=== PATIENT | male | born 1960 | race Caucasian/White ===

== ENCOUNTER 2021-01-14 07:19 | Outpatient (REF) | payer OTHER, SELFPAY ==
[2021-01-14 07:42] LABS: MANUAL DIFF FLAG NO
[2021-01-14 07:47] LABS: Basophils Absolute Auto 0.1 X10*3/uL (0.0-0.2); Basophils Percent Auto 1.3 % (0-2); Eosinophils Absolute Auto 0.1 X10*3/uL (0.0-0.4); Eosinophils Percent Auto 1.1 % (0-4); Hematocrit 46.4 % (42-52); Imm Gran Abs Auto 0.03 X10*3/uL (0.00-0.03); Imm Gran Pct Auto 0.3 % (0.0-0.4); Lymphocytes Absolute Auto 3.1 X10*3/uL (1.2-4.9); Lymphocytes Percent Auto 31.6 % (20-40); Mean Corpuscular HGB Conc 32.3 g/dl (31.0-36.0); Mean Corpuscular Hemoglobin 26.5 pg (27.0-33.0); Mean Platelet Volume 10.1 fL (9.4-12.4); Monocytes Absolute Auto 0.6 X10*3/uL (0.1-1.2); Monocytes Percent Auto 5.9 % (2-11); Neutrophils Absolute Auto 5.8 X10*3/uL (2.0-8.3); Neutrophils Percent Auto 59.8 % (45-73); Platelet Count 211 X10*3/uL (160-400); Red Blood Count 5.66 X10*6/uL (4.60-5.80); Red Cell Distribution Width 13.9 % (11.0-16.0); White Blood Count 9.7 X10*3/uL (4.8-10.8)
[2021-01-14 08:08] LABS: Alanine Aminotransferase 28 U/L (0-40); Albumin Level 4.4 g/dL (3.5-5.0); Alkaline Phosphatase 73 U/L (39-117); Anion Gap 12 (12-20); Aspartate Amino Transferase 21 U/L (5-37); Bilirubin Total 1.1 mg/dL (0.0-1.0); Blood Urea Nitrogen 22 mg/dL (9-16); Calcium 9.3 mg/dL (8.4-10.2); Carbon Dioxide 26 mmol/L (22-29); Chloride 105 mmol/L (96-108); Cholesterol 143 mg/dL; Estimated Glomerular Filt Rate > 60; Glucose Random 124 mg/dL (60-115); HDL Cholesterol 38 mg/dL; LDL Cholesterol Calculated 87 mg/dl; Sodium 139 mmol/L (135-145); Total Protein 6.8 g/dL (6.5-8.0); Triglycerides 91 mg/dL
[2021-01-14 08:32] LABS: Free T4 (Free Thyroxine) 0.87 ng/dL (0.71-1.85); Prostate Specific Antigen Scr 1.45 ng/mL (<0.05-4.0); Thyroid Stimulating Hormone 1.44 uIU/mL (0.32-4.0)
[2021-01-14 09:01] LABS: Creatinine Urine 205.31 mg/dL; Microalbum/Creatinine Ratio Ur 8.7 ug/mg cr
[2021-01-14 09:43] LABS: Folate 13.6 ng/mL (> or = 4.0); Vitamin B12 838 pg/mL (200-900)
== END 2021-01-14 07:20 | disposition home or self-care (01) ==
LOC: HO.LAB 07:19
PROVIDERS: PCP Internal Medicine; Visit Provider Internal Medicine
DX: Z12.5 Encounter for screening for malignant neoplasm of prostate (principal); I10 Essential (primary) hypertension; E78.00 Pure hypercholesterolemia, unspecified; E11.65 Type 2 diabetes mellitus with hyperglycemia
CPT/HCPCS: 36415; 80053; 80061; 82043; 82607; 82746; 84153; 84439; 84443; 85025

== ENCOUNTER 2021-01-24 15:24 | Outpatient (REF) | payer OTHER, SELFPAY ==
--- NOTE | ~2021-01-24 | US_ITS ---
EXAMINATION: US RETROPERITONEAL COMPLETE (RENAL) CLINICAL INFORMATION: Dysuria. COMPARISON: Ultrasound renal 06/26/2019 and 06/17/2018. TECHNIQUE: Real-time imaging of the kidneys and bladder. FINDINGS: RIGHT KIDNEY: 11.3 x 5.5 x 6.9 cm (SAG x AP x TRV). The kidney is normal in size, contour, and echogenicity. Renal cortical thickness is normal. No calculi or focal parenchymal lesions. No hydronephrosis. LEFT KIDNEY: 11.3 x 5.4 x 5.0 cm (SAG x AP x TRV). The kidney is normal in size, contour, and echogenicity. Renal cortical thickness is normal. No renal calculi or hydronephrosis. There is incidental simple cyst interpolar region measuring 1.8 x 1.3 x 1.3 cm, not previously described. BLADDER: The bladder is distended symmetrically and shows no focal wall thickening or diverticulum. Bilateral ureteral jets are demonstrated. There is no bladder calculus or debris at bladder base. Prevoid bladder volume is 191 mL. Postvoid bladder volume is 22 mL. The prostate measures 3.7 x 4.6 x 3.8 cm, volume 34 mL. There are some prostatic calcifications noted. US/US retroperitoneal comp IMPRESSION: 1. No hydronephrosis or calculi. 2. Small cyst interpolar left kidney not previously described, 1.8 x 1.3 cm. 3. Post void bladder residual volume 22 mL. Prostate measures approximately 34 mL.
== END 2021-01-24 15:25 | disposition home or self-care (01) ==
LOC: HO.HMGCX 15:24
PROVIDERS: PCP Internal Medicine; Visit Provider Internal Medicine
DX: R30.0 Dysuria (principal)
CPT/HCPCS: 76770

== ENCOUNTER → 2021-05-06 15:32 | Outpatient (BNVA) | payer OTHER, SELFPAY | PROVIDERS: PCP Internal Medicine; Referring Provider Internal Medicine; Visit Provider Nurse Practitioner Family ==

== ENCOUNTER 2021-08-26 08:17 | Outpatient (REF) | payer OTHER, SELFPAY ==
[2021-08-26 09:14] LABS: Binax Internal Control QC Valid; Binax Now Covid-19 Ag Positive (Negative)
== END 2021-08-26 08:18 | disposition home or self-care (01) ==
LOC: HO.LAB 08:17
PROVIDERS: Visit Provider Internal Medicine
DX: Z20.822 Contact with and (suspected) exposure to COVID-19 (principal)
CPT/HCPCS: 36415; C9803

== ENCOUNTER → 2021-11-04 15:20 | Outpatient (BNVA) | payer OTHER, SELFPAY | PROVIDERS: PCP Internal Medicine; Referring Provider Internal Medicine; Visit Provider Nurse Practitioner Family | DX: Z13.89 Encounter for screening for other disorder (principal) ==

== ENCOUNTER 2022-03-09 09:05 | Outpatient (REF) | payer OTHER, SELFPAY ==
[2022-03-09 09:22] LABS: MANUAL DIFF FLAG NO
[2022-03-09 09:56] LABS: Basophils Absolute Auto 0.1 X10*3/uL (0.0-0.2); Basophils Percent Auto 1.3 % (0-2); Eosinophils Absolute Auto 0.1 X10*3/uL (0.0-0.4); Eosinophils Percent Auto 1.3 % (0-4); Hemoglobin 14.2 g/dl (14.0-18.0); Imm Gran Abs Auto 0.02 X10*3/uL (0.00-0.03); Imm Gran Pct Auto 0.2 % (0.0-0.4); Lymphocytes Absolute Auto 2.8 X10*3/uL (1.2-4.9); Lymphocytes Percent Auto 30.1 % (20-40); Mean Corpuscular Hemoglobin 26.6 pg (27.0-33.0); Mean Corpuscular Volume 80.7 fL (80.0-98.0); Mean Platelet Volume 10.3 fL (9.4-12.4); Monocytes Absolute Auto 0.6 X10*3/uL (0.1-1.2); Monocytes Percent Auto 6.1 % (2-11); Neutrophils Absolute Auto 5.7 x10*3/uL (2.0-8.3); Platelet Count 198 X10*3/uL (160-400); Red Blood Count 5.33 X10*6/uL (4.60-5.80); White Blood Count 9.4 X10*3/uL (4.8-10.8)
[2022-03-09 10:05] LABS: Estimated Average Glucose 137 mg/dL; Hemoglobin A1c % 6.4 %
[2022-03-09 10:28] LABS: Alanine Aminotransferase 30 U/L (0-40); Albumin Level 4.2 g/dL (3.5-5.0); Alkaline Phosphatase 62 U/L (39-117); Anion Gap 11 (12-20); Aspartate Amino Transferase 19 U/L (5-37); Bilirubin Total 0.6 mg/dL (0.0-1.0); Blood Urea Nitrogen 18 mg/dL (9-16); Calcium 9.2 mg/dL (8.4-10.2); Carbon Dioxide 25 mmol/L (22-29); Chloride 107 mmol/L (96-108); Cholesterol 136 mg/dL; Estimated Glomerular Filt Rate > 60; Glucose Random 122 mg/dL (60-115); HDL Cholesterol 36 mg/dL; LDL Cholesterol Calculated 78 mg/dl; Potassium 4.2 mmol/L (3.3-5.1); Sodium 139 mmol/L (135-145); Total Protein 6.7 g/dL (6.5-8.0); Triglycerides 114 mg/dL
[2022-03-09 10:50] LABS: Free T4 (Free Thyroxine) 0.84 ng/dL (0.71-1.85); Prostate Specific Antigen Scr 1.66 ng/mL (<0.05-4.0); Thyroid Stimulating Hormone 1.44 uIU/mL (0.32-4.0)
[2022-03-09 11:04] LABS: Folate 8.6 ng/mL (> or = 4.0); Vitamin B12 769 pg/mL (200-900)
== END 2022-03-09 09:06 | disposition home or self-care (01) ==
LOC: HO.LAB 09:05
PROVIDERS: PCP Internal Medicine; Visit Provider Internal Medicine
DX: Z12.5 Encounter for screening for malignant neoplasm of prostate (principal); E11.65 Type 2 diabetes mellitus with hyperglycemia; E78.00 Pure hypercholesterolemia, unspecified; K21.9 Gastro-esophageal reflux disease without esophagitis
CPT/HCPCS: 36415; 80053; 80061; 82043; 82607; 82746; 83036; 84153; 84439; 84443; 85025

== ENCOUNTER 2022-06-27 15:17 | Outpatient (REF) | payer OTHER, SELFPAY ==
--- NOTE | ~2022-06-27 | US_ITS ---
EXAMINATION: US RETROPERITONEAL LIMITED (RENAL ONLY) CLINICAL INFORMATION: Urinary tract infection. COMPARISON: 01/24/2021 TECHNIQUE: Sonographic imaging of the kidneys. FINDINGS: RIGHT KIDNEY: 10.9 x 5 x 5.2 cm (SAG x AP x TRV). The kidney has normal cortical thickness and echotexture. No focal parenchymal lesion, nephrolithiasis or hydronephrosis. No perinephric fluid is visualized. LEFT KIDNEY: 11 x 5.2 x 4.5 cm (SAG x AP x TRV). 1.5 cm simple cortical cyst in the interpolar region. No renal imaging follow-up is recommended for a simple cyst. No suspicious renal lesion, nephrolithiasis or hydronephrosis. No perinephric fluid is visualized. OTHER: The partially visualized liver appears to be diffusely hyperechoic, consistent with steatosis. US/US renal BI IMPRESSION: No nephrolithiasis or hydronephrosis. No sonographic findings to suggest an upper urinary tract infection.
== END 2022-06-27 15:18 | disposition home or self-care (01) ==
LOC: HO.US 15:17
PROVIDERS: Visit Provider Internal Medicine
DX: N39.0 Urinary tract infection, site not specified (principal)
CPT/HCPCS: 76775

== ENCOUNTER 2022-06-29 16:35 | Outpatient (REF) | payer OTHER, SELFPAY ==
[2022-06-29 17:46] LABS: Appearance Urine Clear; Color Urine Yellow; Glucose Urine UA Negative (Negative); Leukocyte Esterase Urine Negative (Negative); Nitrite Urine Negative (Negative); Urine Blood Negative (Negative); Urine Ketones Negative (Negative); Urine Protein Negative (Neg-Trace)
[2022-06-29 18:03] LABS: Creatinine Urine 126.75 mg/dL; Microalbum/Creatinine Ratio Ur 11.8 ug/mg cr
== END 2022-06-29 16:36 | disposition home or self-care (01) ==
LOC: HO.LAB 16:35
PROVIDERS: PCP Internal Medicine; Visit Provider Internal Medicine
DX: E11.65 Type 2 diabetes mellitus with hyperglycemia (principal); N39.0 Urinary tract infection, site not specified
CPT/HCPCS: 81003; 82043

== ENCOUNTER → 2022-10-19 14:58 | Outpatient (REF) | payer OTHER, SELFPAY | LOC: HO.SL 14:58 | PROVIDERS: PCP Internal Medicine; Visit Provider Internal Medicine | DX: G47.33 Obstructive sleep apnea (adult) (pediatric) (principal) | CPT/HCPCS: 95806 ==

== ENCOUNTER → 2022-11-06 15:49 | Outpatient (BNVA) | payer OTHER, SELFPAY | PROVIDERS: PCP Internal Medicine; Visit Provider Nurse Practitioner Family | DX: Z13.89 Encounter for screening for other disorder (principal) ==

== ENCOUNTER 2023-03-23 05:55 | Outpatient (REF) | payer OTHER, SELFPAY ==
[2023-03-23 06:07] LABS: MANUAL DIFF FLAG NO
[2023-03-23 07:18] LABS: Basophils Absolute Auto 0.1 X10*3/uL (0.0-0.2); Basophils Percent Auto 1.5 % (0-2); Eosinophils Absolute Auto 0.1 X10*3/uL (0.0-0.4); Eosinophils Percent Auto 1.2 % (0-4); Hematocrit 47.9 % (42.0-52.0); Hemoglobin 15.4 g/dl (14.0-18.0); Imm Gran Abs Auto 0.03 X10*3/uL (0.00-0.03); Imm Gran Pct Auto 0.3 % (0.0-0.4); Mean Corpuscular HGB Conc 32.2 g/dl (31.0-36.0); Mean Corpuscular Hemoglobin 27.1 pg (27.0-33.0); Mean Corpuscular Volume 84.3 fL (80.0-98.0); Mean Platelet Volume 10.5 fL (9.4-12.4); Monocytes Absolute Auto 0.6 X10*3/uL (0.1-1.2); Neutrophils Absolute Auto 5.7 x10*3/uL (2.0-8.3); Platelet Count 170 X10*3/uL (160-400); Red Blood Count 5.68 X10*6/uL (4.60-5.80); Red Cell Distribution Width 13.6 % (11.0-16.0); White Blood Count 9.6 X10*3/uL (4.8-10.8)
[2023-03-23 07:28] LABS: Estimated Average Glucose 140 mg/dL; Hemoglobin A1c % 6.5 %
[2023-03-23 07:46] LABS: Alanine Aminotransferase 35 U/L (0-40); Albumin Level 4.2 g/dL (3.5-5.0); Alkaline Phosphatase 55 U/L (39-117); Anion Gap 14 (12-20); Aspartate Amino Transferase 25 U/L (5-37); Bilirubin Total 0.8 mg/dL (0.0-1.0); Blood Urea Nitrogen 16 mg/dL (9-16); Calcium 9.7 mg/dL (8.4-10.2); Carbon Dioxide 23 mmol/L (22-29); Chloride 105 mmol/L (96-108); Cholesterol 123 mg/dL; Estimated Glomerular Filt Rate > 60; Glucose Random 106 mg/dL (60-115); HDL Cholesterol 35 mg/dL; LDL Cholesterol Calculated 66 mg/dl; Potassium 4.1 mmol/L (3.3-5.1); Sodium 138 mmol/L (135-145); Total Protein 7.1 g/dL (6.5-8.0); Triglycerides 114 mg/dL
[2023-03-23 08:02] LABS: Free T4 (Free Thyroxine) 0.74 ng/dL (0.71-1.85); Thyroid Stimulating Hormone 1.26 uIU/mL (0.32-4.0)
[2023-03-23 08:17] LABS: Folate 9.2 ng/mL (> or = 4.0); Prostate Specific Antigen Scr 1.67 ng/mL (<0.05-4.0); Vitamin B12 1040 pg/mL (200-900)
[2023-03-23 19:46] LABS: Creatinine Urine 43.84 mg/dL; Microalbumin Urine < 5.0 mg/L
== END 2023-03-23 05:56 | disposition home or self-care (01) ==
LOC: HO.LAB 05:55
PROVIDERS: PCP Internal Medicine; Visit Provider Internal Medicine
DX: Z12.5 Encounter for screening for malignant neoplasm of prostate (principal); E11.65 Type 2 diabetes mellitus with hyperglycemia; E78.00 Pure hypercholesterolemia, unspecified
CPT/HCPCS: 36415; 80053; 80061; 82043; 82607; 82746; 83036; 84153; 84439; 84443; 85025

== ENCOUNTER 2023-03-30 14:56 | Outpatient (AMB) | payer OTHER, SELFPAY ==
[2023-03-30 15:02] VITALS: BP 118/68; PULSE 55; O2SAT 98; BMI 44.4
--- NOTE | 2023-03-30 15:02 | MHC.PC.OV ---
Vital Signs 03/30/23 15:02 Height 5 ft 2 in Weight 243 lb BMI 44.4 BP 118/68 Blood Pressure Location Lt brachial Position Sitting Pulse 55 Pulse Source Pulse Oximeter Temp Source Skin Pulse Oximetry (%) 98 Oxygen Delivery Method Room Air Intake Visit Reasons: 3M Follow up Allergies lisinopril [LISINOPRIL] Allergy (Severe, Verified 03/30/23 15:05) ANGIOEDEMA, COUGH mold Allergy (Severe, Verified 03/30/23 15:05) runnig nose / nasal simvastatin [SIMVASTATIN] Allergy (Intermediate, Verified 03/30/23 15:05) SWOLLEN JOINTS Medication List - Last Reconciled 03/30/23 by Jeremy Willis MD [AUTO PAP 6-16 cm H2O humidified AIR As directed] cholecalciferol (vitamin D3) 25 mcg PO DAILY clotrimazole 1% 1 appl topical BID 4 weeks cyanocobalamin (vitamin B-12) 1,000 mcg PO DAILY fexofenadine (Mulu Allergy) 180 mg PO DAILY hydrocortisone 2.5% (Proctosol HC) 1 appl CA BID-QID PRN ipratropium bromide 2 sprays intranasal BID irbesartan 75 mg PO DAILY metformin 500 mg PO BID metoprolol succinate ER 50 mg PO DAILY 90 days miconazole nitrate 2% (Zeasorb AF) 1 appl topical BID omeprazole 40 mg PO DAILY pravastatin 10 mg PO DAILY sitagliptin phosphate (Januvia) 100 mg PO DAILY Tobacco use date assessed: 03/30/23 Dental Screening Dental Screen Date: 03/30/23 Did you have a dental visit in the last 12 months?: Yes Did you have a dental problem in the last 6 months where you did not have access to dental care?: No Was dental information given to patient?: Patient has dentist HPI 3M Follow up HPI Details 62-year-old obese male with diabetes mellitus obstructive sleep apnea hypercholesterolemia GERD hypertension last seen in December 2022 for physical exam. Patient is here for follow-up patient has been advised blood work. [facility] Medical History (Updated 12/28/22 @ 17:13 by Jeremy Willis MD) Allergic rhinitis Anxiety Dysuria GERD (gastroesophageal reflux disease) Hypercholesterolemia Hypertension Insomnia Iron deficiency anemia Obesity Obstructive sleep apnea Renal calculi Right inguinal hernia Tinea pedis Type 2 diabetes mellitus with hyperglycemia Vitamin D deficiency Surgical History History of ear surgery History of inguinal hernia repair History of tonsillectomy and adenoidectomy Family History (Updated 12/28/22 @ 17:01 by Jeremy Willis MD) Father Hypertension CVD (cardiovascular disease) Myocardial infarction Mother Hypertension CVD (cardiovascular disease) CAD (coronary artery disease) Sister Myocardial infarction Brother Alcohol abuse CVA (cerebral vascular accident) Social History (Updated 12/28/22 @ 17:01 by Jeremy Willis MD) Housing: House Alcohol intake: current Alcohol intake frequency: holidays/special occasions only Alcohol type: beer Patient Tobacco Use Status: Never used Tobacco e-Cigarette/Vaping Use: Never Used Second Hand Smoke Exposure: No service: No Current occupational status: employed Cognitive needs: No Hearing needs: Yes Vision needs: No Questionnaire Thrive Questionnaire Date Thrive assessed: 12/28/22 AUDIT C Alcohol Use Questionnaire (AUDIT-C) 1. How often do you have a drink containing alcohol?: Monthly or less 2. How many drinks containing alcohol do you have on a typical day when you are drinking?: 1 or 2 3. How often do you have six or more drinks on one occasion?: Never Total Score: 1 Score Reviewed/Action Taken: No TONNY-7 AMB Questionnaire TONNY-7 Date TONNY - 7 assessed: 12/28/22 Source: Developed by Drs. Rajeev Adams, Macey Snow, Sammy Dejesus and colleagues, with an educational jaimie from [employer]. Physical exam (Primary Care) Vital Signs: Last Vital Signs Pulse 55 03/30/23 15:02 BP 118/68 03/30/23 15:02 Pulse Ox 98 03/30/23 15:02 Oxygen Delivery Method Room Air 03/30/23 15:02 BMI result Body Mass Index 44.4 Tobacco/Smoking Status: Tobacco use Status Tobacco use date assessed 03/30/23 03/30/23 15:05 Patient Tobacco Use Status Never used Tobacco 03/30/23 15:05 e-Cigarette/Vaping Use Never Used 03/30/23 15:05 Thrive Assessment: Date of Thrive Assessment Date Thrive assessed 12/28/22 03/30/23 15:05 Const General: alert; No acute distress Eyes Conjunctivae: conjunctivae normal Resp Auscultation: clear to auscultation bilaterally Cardio Rate: regular rate Rhythm: regular rhythm GI Inspection: Yes normal to inspection Extrem General: Yes normal to inspection and No edema Assessment and Plan Assessment & Plan (1) Type 2 diabetes mellitus with hyperglycemia: Comment: Dr. 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 Hemoglobin A1c goal of less than 6.5 patient is presently on metformin 500 mg twice a day and Januvia 100 mg once a day (2) Hypertension: Code(s): I10 - Essential (primary) hypertension Qualifiers: Hypertension type: essential hypertension Qualified Code(s): I10 - Essential (primary) hypertension Plan: Continue with blood pressure medication. Decrease salt intake and exercise patient is on metoprolol 50 mg once a day irbesartan 75 mg once a day (3) Hypercholesterolemia: Code(s): E78.00 - Pure hypercholesterolemia, unspecified Plan: Avoid fried foods, chicken skin, eggs, butter margarine, pastries and meat. Be it pork or beef they have a lot of cholesterol LDL goal of less than 100 and triglyceride of less than 150 patient is on pravastatin 10 mg once a day (4) GERD (gastroesophageal reflux disease): Code(s): K21.9 - Gastro-esophageal reflux disease without esophagitis Qualifiers: Esophagitis presence: without esophagitis Qualified Code(s): K21.9 - Gastro-esophageal reflux disease without esophagitis Plan: Avoid the foods that causes that usually spicy foods, tomato products, juices, coffee, soda and foods that your sensitive to. After eating do not lie down, allow 3-4 hours before in lie down. And keep the head of bed above 30 degrees to avoid the acid from going up. (5) Obesity: Code(s): E66.9 - Obesity, unspecified Qualifiers: Obesity type: due to excess calories Obesity classification: adult class 3 (BMI >= 40) Serious obesity comorbidity presence: with serious comorbidity Body mass index: BMI 40.0-44.9 Qualified Code(s): E66.01 - Morbid (severe) obesity due to excess calories; Z68.41 - Body mass index [BMI]40.0-44.9, adult Plan: Diet and exercise (6) Obstructive sleep apnea: Comment: CPAP use Q night > 4 hours and benefits patient Sleep study October 2022 Code(s): G47.33 - Obstructive sleep apnea (adult) (pediatric) Plan: Continue to use the CPAP more than 4 hours a night and benefits from this Medications: New hydrocortisone 2.5% (Proctosol HC) 1 appl CA BID-QID PRN 30 grams 0RF hemorrhoids Coding Level of Care Code Est Pt Level 4 (79548) Diagnoses Type 2 diabetes mellitus with hyperglycemia E11.65 Diabetes mellitus jail insulin use: without jail use Hypertension I10 Hypertension type: essential hypertension Hypercholesterolemia E78.00 GERD (gastroesophageal reflux disease) K21.9 Esophagitis presence: without esophagitis Obesity E66.01; Z68.41 Obesity type: due to excess calories Obesity classification: adult class 3 (BMI >= 40) Serious obesity comorbidity presence: with serious comorbidity Body mass index: BMI 40.0-44.9 Obstructive sleep apnea G47.33
== END 2023-03-30 15:26 | disposition home or self-care (01) ==
PROVIDERS: PCP Internal Medicine; Visit Provider Internal Medicine
DX: E11.65 Type 2 diabetes mellitus with hyperglycemia (principal); I10 Essential (primary) hypertension; E66.01 Morbid (severe) obesity due to excess calories; Z68.41 Body mass index [BMI] 40.0-44.9, adult; K21.9 Gastro-esophageal reflux disease without esophagitis; E78.00 Pure hypercholesterolemia, unspecified; G47.33 Obstructive sleep apnea (adult) (pediatric)
CPT/HCPCS: 99214

== ENCOUNTER 2023-07-02 16:30 | Outpatient (AMB) | payer OTHER, SELFPAY ==
--- NOTE | 2023-07-02 17:06 | A.OFFPC_ITS ---
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 Required: No Accompanied by: Self / Same As Patient Allergies lisinopril [LISINOPRIL] Allergy (Severe, Verified 07/02/23 17:15) ANGIOEDEMA, COUGH mold Allergy (Severe, Verified 07/02/23 17:15) runnig nose / nasal simvastatin [SIMVASTATIN] Allergy (Intermediate, Verified 07/02/23 17:15) SWOLLEN JOINTS Tobacco use date assessed: 03/30/23 Dental Screening Dental Screen Date: 07/02/23 Did you have a dental visit in the last 12 months?: Yes Did you have a dental problem in the last 6 months where you did not have access to dental care?: No Was dental information given to patient?: Patient has dentist HPI DM HPI Details 62-year-old obese male with diabetes opal litus hypertension hypercholesterolemia GERD obstructive sleep apnea coming in for follow-up. Last seen in March 2023. step down from van R knee pain 2 week ago happened at work and now having knee pain pain on the R lateral posterior area [facility] Medical History (Updated 07/02/23 @ 17:45 by Jeremy Willis MD) Tinea pedis Dysuria Right inguinal hernia Renal calculi Iron deficiency anemia Obstructive sleep apnea Obesity GERD (gastroesophageal reflux disease) Anxiety Insomnia Hypercholesterolemia Type 2 diabetes mellitus with hyperglycemia Vitamin D deficiency Allergic rhinitis Hypertension Surgical History History of tonsillectomy and adenoidectomy History of ear surgery History of inguinal hernia repair Family History Father Hypertension CVD (cardiovascular disease) Myocardial infarction Mother Hypertension CVD (cardiovascular disease) CAD (coronary artery disease) Sister Myocardial infarction Brother Alcohol abuse CVA (cerebral vascular accident) Social History Housing: House Alcohol intake: current Alcohol intake frequency: holidays/special occasions only Alcohol type: beer Patient Tobacco Use Status: Never used Tobacco e-Cigarette/Vaping Use: Never Used Second Hand Smoke Exposure: No service: No Current occupational status: employed Cognitive needs: No Hearing needs: Yes Vision needs: No Questionnaire Thrive Questionnaire Date Thrive assessed: 12/28/22 TONNY-7 AMB Questionnaire TONNY-7 Date TONNY - 7 assessed: 12/28/22 Source: Developed by Drs. Rajeev Adams, Macey Snow, Sammy Dejesus and colleagues, with an educational jaimie from [employer]. Physical exam (Primary Care) Vital Signs: Last Vital Signs Pulse 64 07/02/23 17:11 BP 120/80 07/02/23 17:11 Pulse Ox 99 07/02/23 17:11 Oxygen Delivery Method Room Air 07/02/23 17:11 BMI result Body Mass Index 45.1 Tobacco/Smoking Status: Tobacco use Status Tobacco use date assessed 03/30/23 07/02/23 17:06 Patient Tobacco Use Status Never used Tobacco 07/02/23 17:06 e-Cigarette/Vaping Use Never Used 07/02/23 17:06 Thrive Assessment: Date of Thrive Assessment Date Thrive assessed 12/28/22 07/02/23 17:06 Const General: alert; No acute distress Eyes Conjunctivae: conjunctivae normal Resp Auscultation: clear to auscultation bilaterally Cardio Rate: regular rate Rhythm: regular rhythm GI Inspection: Yes normal to inspection Extrem General: Yes normal to inspection and No edema Results AMB Hemoglobin A1c AMB Hemoglobin A1c 6.9 % Last Edit by AISHA Cordova on 07/02/23 17:19 Results Reviewed Results Reviewed: Laboratory Last Values Hgb A1c (Clinic) 6.9 % (4.0-6.0) H 07/02/23 17:18 Assessment and Plan Assessment & Plan (1) Type 2 diabetes mellitus with hyperglycemia: Comment: Dr. 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 Hemoglobin A1c goal of less than 6.5 patient is on metformin 500 mg twice a day and Januvia 100 mg once a day (2) Hypercholesterolemia: Code(s): E78.00 - Pure hypercholesterolemia, unspecified Plan: Avoid fried foods, chicken skin, eggs, butter margarine, pastries and meat. Be it pork or beef they have a lot of cholesterol LDL goal of less than 130 and triglyceride of less than 150 patient on pravastatin 10 mg once a day March 2023 last blood work. decline additional med. (3) GERD (gastroesophageal reflux disease): Code(s): K21.9 - Gastro-esophageal reflux disease without esophagitis Qualifiers: Esophagitis presence: without esophagitis Qualified Code(s): K21.9 - Gastro-esophageal reflux disease without esophagitis Plan: Avoid the foods that causes that usually spicy foods, tomato products, juices, coffee, soda and foods that your sensitive to. After eating do not lie down, allow 3-4 hours before in lie down. And keep the head of bed above 30 degrees to avoid the acid from going up. (4) Obesity: Code(s): E66.9 - Obesity, unspecified Qualifiers: Obesity type: due to excess calories Obesity classification: adult class 3 (BMI >= 40) Serious obesity comorbidity presence: with serious comorbidity Body mass index: BMI 40.0-44.9 Qualified Code(s): E66.01 - Morbid (severe) obesity due to excess calories; Z68.41 - Body mass index [BMI]40.0- 44.9, adult Plan: Diet and exercise (5) Obstructive sleep apnea: Comment: CPAP use Q night > 4 hours and benefits patient Sleep study October 2022 Code(s): G47.33 - Obstructive sleep apnea (adult) (pediatric) Plan: Continue with CPAP more than 4 hours a night and benefits from the (6) Hypertension: Code(s): I10 - Essential (primary) hypertension Qualifiers: Hypertension type: essential hypertension Qualified Code(s): I10 - Essential (primary) hypertension Plan: Blood pressure put patient is on metoprolol to 50 mg once a day irbesartan 75 mg once a day (7) Knee pain, right: Code(s): M25.561 - Pain in right knee (8) Allergy desensitization therapy: Code(s): Z51.6 - Encounter for desensitization to allergens Plan: allergy and Immunology Orders: Orders AMB Hemoglobin A1c Today E11.65 - Type 2 diabetes mellitus with hyperglycemia XR knee RT 2V Today M25.561 - Pain in right knee Coding Level of Care Code Est Pt Level 4 (83711) Diagnoses Type 2 diabetes mellitus with hyperglycemia, without long-term current use of insulin E11.65 Diabetes mellitus correction insulin use: without correction use Hypercholesterolemia E78.00 Gastroesophageal reflux disease without esophagitis K21.9 Esophagitis presence: without esophagitis Class 3 severe obesity due to excess calories with serious comorbidity and body mass index (BMI) of 40.0 to 44.9 in adult E66.01; Z68.41 Obesity type: due to excess calories Obesity classification: adult class 3 (BMI >= 40) Serious obesity comorbidity presence: with serious comorbidity Body mass index: BMI 40.0-44.9 Obstructive sleep apnea G47.33 Essential hypertension I10 Hypertension type: essential hypertension Knee pain, right M25.561 Allergy desensitization therapy Z51.6
[2023-07-02 17:11] VITALS: BP 120/80; PULSE 64; O2SAT 99; BMI 45.1
== END 2023-07-02 17:52 | disposition home or self-care (01) ==
PROVIDERS: PCP Internal Medicine; Visit Provider Internal Medicine
DX: E11.65 Type 2 diabetes mellitus with hyperglycemia (principal)
CPT/HCPCS: 83036; 99214

== ENCOUNTER 2023-07-06 08:37 | Outpatient (REF) | payer OTHER, SELFPAY ==
--- NOTE | ~2023-07-06 | XR_ITS ---
EXAMINATION: XR KNEE, RIGHT CLINICAL INFORMATION: Pain in right knee posterior. Pain behind knee. Hurts when sitting. COMPARISON: None available. TECHNIQUE: AP and lateral of the right knee. FINDINGS: No significant joint effusion. Tiny posterior patellar spurs. Punctate calcification superior to the medial tibial spine on the AP view not clearly visualized on the lateral view, possibly a loose body. Mild medial joint space narrowing. Tiny medial and lateral marginal osteophytes. XR/XR knee RT 2V IMPRESSION: Mild degenerative changes.
== END 2023-07-06 08:38 | disposition home or self-care (01) ==
LOC: HO.XRAY 08:37
PROVIDERS: PCP Internal Medicine; Visit Provider Internal Medicine
DX: M25.561 Pain in right knee (principal)
CPT/HCPCS: 73560

== ENCOUNTER 2023-07-10 08:39 | Outpatient (REF) | payer OTHER, SELFPAY ==
--- NOTE | ~2023-07-10 | XR_ITS ---
EXAMINATION: XR KNEE AP STANDING CLINICAL INFORMATION: Pain. COMPARISON: Radiographs dated 06/09/2013. TECHNIQUE: AP bilateral standing view of the knees was obtained. An axial view of the right knee was obtained. FINDINGS: Bony mineralization is normal. There is mild asymmetric narrowing of the medial joint space compartment of the right knee, and mild to moderate osteoarthritic change is seen of the medial joint space compartment of the left knee. The bilateral lateral joint space compartments and the right patellofemoral compartment are well-maintained. There is mild peripheral osteophyte formation of the lateral and medial articular surfaces of the right patella. No fracture or dislocation is seen. No significant varus or valgus configuration is seen bilaterally. No foreign body is seen. XR/XR knee RT 1V IMPRESSION: 1. There is mild osteoarthritic change of the medial and patellofemoral joint space compartments of the right knee. 2. Mild to moderate osteoarthritic change is seen of the medial joint space compartment of the left knee. 3. No fracture or dislocation is seen.
--- NOTE | ~2023-07-10 | XR_ITS ---
EXAMINATION: XR KNEE AP STANDING CLINICAL INFORMATION: Pain. COMPARISON: Radiographs dated 06/09/2013. TECHNIQUE: AP bilateral standing view of the knees was obtained. An axial view of the right knee was obtained. FINDINGS: Bony mineralization is normal. There is mild asymmetric narrowing of the medial joint space compartment of the right knee, and mild to moderate osteoarthritic change is seen of the medial joint space compartment of the left knee. The bilateral lateral joint space compartments and the right patellofemoral compartment are well-maintained. There is mild peripheral osteophyte formation of the lateral and medial articular surfaces of the right patella. No fracture or dislocation is seen. No significant varus or valgus configuration is seen bilaterally. No foreign body is seen. XR/XR knee standing BI IMPRESSION: 1. There is mild osteoarthritic change of the medial and patellofemoral joint space compartments of the right knee. 2. Mild to moderate osteoarthritic change is seen of the medial joint space compartment of the left knee. 3. No fracture or dislocation is seen.
== END 2023-07-10 08:40 | disposition home or self-care (01) ==
LOC: HO.HOSX 08:39
PROVIDERS: PCP Internal Medicine; Visit Provider Physician Assistant
DX: S76.311A Strain of muscle, fascia and tendon of the posterior muscle group at thigh level, right thigh, initial encounter (principal); M25.561 Pain in right knee; M25.562 Pain in left knee
CPT/HCPCS: 73560; 73565; 99202

== ENCOUNTER 2023-07-10 08:39 | Outpatient (AMB) | payer OTHER, SELFPAY ==
--- NOTE | 2023-07-10 08:40 | A.OFFVIS_ITS ---
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 Patient reports when he was coming down from a van he missed stepped and fell on his right knee. He states that his pain is behind his knee. 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 The patient was seen by his PCP on 07/02/2023 status post stepping down from a van at work and causing pain in the right knee. He states he gets pain when he applies pressure and when the leg is off the ground. He denies edema. He states he has pain on the back side of the knee radiating down his leg. He states yesterday he was seen by Dr. Willis for a follow up who referred him to our office. He would like to know if he is able to work. 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 Patient has a significant history of diabetes mellitus. He is accompanied in the office today by his . [facility] Medical History (Updated 07/10/23 @ 09:18 by Patrica De Luna) Tinea pedis Dysuria Right inguinal hernia Renal calculi Iron deficiency anemia Obstructive sleep apnea Obesity GERD (gastroesophageal reflux disease) Anxiety Insomnia Hypercholesterolemia Type 2 diabetes mellitus with hyperglycemia Vitamin D deficiency Allergic rhinitis Hypertension Surgical History History of tonsillectomy and adenoidectomy History of ear surgery History of inguinal hernia repair Family History Father Hypertension CVD (cardiovascular disease) Myocardial infarction Mother Hypertension CVD (cardiovascular disease) CAD (coronary artery disease) Sister Myocardial infarction Brother Alcohol abuse CVA (cerebral vascular accident) Housing: House Alcohol intake: current Alcohol intake frequency: holidays/special occasions only Alcohol type: beer Patient Tobacco Use Status: Never used Tobacco e-Cigarette/Vaping Use: Never Used Second Hand Smoke Exposure: No service: No Current occupational status: employed Cognitive needs: No Hearing needs: Yes Vision needs: No Review of Systems Const All systems reviewed & are unremarkable except as noted in HPI and below Physical Exam Const General: cooperative and no acute distress Orientation/consciousness: patient oriented x3 Resp Effort & Inspection: normal respiratory effort and able to speak in complete sentences Cardio Peripheral pulses: Peripheral pulses 2+ throughout Skin General skin exam: no rashes or lesions noted Neuro General: patient oriented x3 Extrem Other: Right knee: Normal to inspection. No ecchymosis, erythema, or joint effusion. Tenderness to palpation along the hamstring tendon. ROM is 20-90 degrees. No tenderness to palpation along the medial or lateral joint lines. NVI. Assessment & Plan Assessment & Plan (1) Right hamstring muscle strain: Code(s): S76.311A - Strain of muscle, fascia and tendon of the posterior muscle group at thigh level, right thigh, initial encounter Qualifiers: Encounter type: initial encounter Qualified Code(s): S76.311A - Strain of muscle, fascia and tendon of the posterior muscle group at thigh level, right thigh, initial encounter Plan 62-year-old male who presents in the office today for an evaluation of right knee pain. The patient was seen by his PCP on 07/02/2023 status post stepping down from a van at work and causing pain in the right knee. He states he gets pain when he applies pressure and when the leg is off the ground. He denies ed salvador. He states he has pain on the back side of the knee radiating down his leg. He states yesterday he was seen by Dr. Willis for a follow up who referred him to our office. He would like to know if he is able to work. 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 Patient has a significant history of diabetes mellitus. He is accompanied in the office today by his , Elke. The patient will be referred for physical therapy to work on ROM and strengthening of the right knee. He may weight bear as tolerated with the crutch. He will be given a work note stating he will remain out of work until his follow up. Should your pain continue after a few weeks of physical therapy we can move forward with an MRI for further evaluation of the hamstring. He can take ibuprofen or tylenol OTC PRN for pain. Follow up will be in 4 weeks, or sooner if needed. X-rays of the right knee which were obtained while in the office today and were reviewed by me, Rossi Dang PA-C, revealed no acute fracture or dislocation. Orders: Orders XR knee standing BI Today M25.569 - Pain in unspecified knee XR knee RT 1V Today M25.569 - Pain in unspecified knee Patient Instructions: Scribed for Rossi Dang PA-C by Patrica De Luna medical billing assistant, on 07/10/2023 at 8:46 am, EST. Coding Level of Care Code New Pt Level 4 (48409) Diagnoses Strain of right hamstring muscle, initial encounter S76.311A Encounter type: initial encounter
== END 2023-07-10 09:18 | disposition home or self-care (01) ==
PROVIDERS: PCP Internal Medicine; Visit Provider Physician Assistant
DX: S76.311A Strain of muscle, fascia and tendon of the posterior muscle group at thigh level, right thigh, initial encounter (principal)
CPT/HCPCS: 99203

== ENCOUNTER 2023-08-07 13:03 | Outpatient (AMB) | payer OTHER, SELFPAY ==
--- NOTE | 2023-08-07 13:10 | MHC.OFFVIS ---
Intake Vital Signs 08/07/23 13:12 Height 5 ft 2 in Weight 246 lb BMI 45.0 Intake Visit Reasons: OV- Pain in the right knee Intake Note: Jossue is a 62 year old male who presents today for a follow up of his right knee pain DOI 06/20/23. Patient reports that he is doing well, He has continued to work with physical therapy which is going well. Has discontinued PT. Allergies lisinopril [LISINOPRIL] Allergy (Severe, Verified 08/07/23 13:12) ANGIOEDEMA, COUGH mold Allergy (Severe, Verified 08/07/23 13:12) runnig nose / nasal simvastatin [SIMVASTATIN] Allergy (Intermediate, Verified 08/07/23 13:12) SWOLLEN JOINTS HPI OV- Pain in the right knee HPI Details 62-year-old male who presents in the office today for a follow up of right knee pain. I last saw the patient in the office on 07/10/2023 where he was referred to physical therapy and was instructed to weight bear as tolerated with the crutches for support. He was supplied with a work note stating he is to remain out of work until his follow up. If his pain was to continue we would move forward with the MRI. The patient reports he is doing well. He states he continues to work with physical therapy, which he states went well. He has since discontinued attending physical therapy. [facility] Medical History (Updated 07/10/23 @ 09:18 by Patrica De Luna) Tinea pedis Dysuria Right inguinal hernia Renal calculi Iron deficiency anemia Obstructive sleep apnea Obesity GERD (gastroesophageal reflux disease) Anxiety Insomnia Hypercholesterolemia Type 2 diabetes mellitus with hyperglycemia Vitamin D deficiency Allergic rhinitis Hypertension Surgical History History of tonsillectomy and adenoidectomy History of ear surgery History of inguinal hernia repair Family History Father Hypertension CVD (cardiovascular disease) Myocardial infarction Mother Hypertension CVD (cardiovascular disease) CAD (coronary artery disease) Sister Myocardial infarction Brother Alcohol abuse CVA (cerebral vascular accident) Social History Housing: House Alcohol intake: current Alcohol intake frequency: holidays/special occasions only Alcohol type: beer Patient Tobacco Use Status: Never used Tobacco e-Cigarette/Vaping Use: Never Used Second Hand Smoke Exposure: No service: No Current occupational status: employed Cognitive needs: No Hearing needs: Yes Vision needs: No Review of Systems Const All systems reviewed & are unremarkable except as noted in HPI and below Physical Exam Vital Signs: BMI result Body Mass Index 45.0 Const General: cooperative, healthy appearing and no acute distress Resp Effort & Inspection: normal respiratory effort and able to speak in complete sentences Cardio Rate: regular rate Peripheral pulses: Peripheral pulses 2+ throughout GI Palpation (GI): Soft to palpation Skin Lesions: no lesions Rashes: no rashes Extrem Other: Right knee: Normal to inspection. No ecchymosis, erythema, or joint effusion. No tenderness to palpation to the medial or lateral joint lines. No tenderness to palpation along the hamstring tendon. Full knee extension and flexion. Negative Karoline's. Negative anterior drawer. NVI. Assessment & Plan Assessment & Plan (1) Right hamstring muscle strain: Code(s): S76.311A - Strain of muscle, fascia and tendon of the posterior muscle group at thigh level, right thigh, initial encounter Qualifiers: Encounter type: initial encounter Qualified Code(s): S76.311A - Strain of muscle, fascia and tendon of the posterior muscle group at thigh level, right thigh, initial encounter Plan Mr. Monsalve is a 62-year-old male who presents in the office today for a follow up of right knee pain. I last saw the patient in the office on 07/10/2023 where he was referred to physical therapy and was instructed to weight bear as tolerated with the crutches for support. He was supplied with a work note stating he is to remain out of work until his follow up. If his pain was to continue we would move forward with the MRI. The patient reports he is doing well. He states he continues to work with physical therapy, which he states went well. He has since discontinued attending physical therapy. The patient may return to normal activities as tolerated. He should continue with physical therapy until all sessions are completed. 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 Should he need to go back to having restrictions he will call the office and I will accommodate him with a new note for work. Follow up will be PRN, or sooner if needed. Patient Instructions: Scribed for Rossi Dang PA-C by Patrica De Luna medical consultant, on 08/07/2023 at 1:28 pm, EST. Coding Level of Care Code Est Pt Level 3 (13658) Diagnoses Strain of right hamstring muscle, initial encounter S76.311A Encounter type: initial encounter
[2023-08-07 13:12] VITALS: BMI 45.0
== END 2023-08-07 13:43 | disposition home or self-care (01) ==
PROVIDERS: PCP Internal Medicine; Visit Provider Physician Assistant
DX: S76.311A Strain of muscle, fascia and tendon of the posterior muscle group at thigh level, right thigh, initial encounter (principal); Z04.2 Encounter for examination and observation following work accident
CPT/HCPCS: 99213

== ENCOUNTER → 2023-08-07 13:03 | Outpatient (BNVA) | payer OTHER, SELFPAY | PROVIDERS: PCP Internal Medicine; Visit Provider Physician Assistant | DX: S76.311A Strain of muscle, fascia and tendon of the posterior muscle group at thigh level, right thigh, initial encounter (principal) | CPT/HCPCS: 99212 ==

== ENCOUNTER 2023-08-08 08:00 | Outpatient (RCR) | payer OTHER, SELFPAY ==
--- NOTE | 2023-07-18 12:18 | MHC.PT.EP ---
[facility] [place] Office [place] Office [address] [phone] F: [phone] F: [phone] F: [phone] F: [phone] Physical Therapy Plan of Care Date of Evaluation: 07/18/23 Date of Surgery: NA Diagnosis: R HAMSTRING MM STRAIN Assessment: Pt IS 62 YO M REFERRED TO PT FROM ORTHO (RADHA) WITH R HS STRAIN WHICH OCCURED ON Jun WHILE GETTING OUT OF TRUCK AT WORK ( JAMMED R LE ). PRESENTS WITH DECREASED R KNEE FLEXION, ANTALGIC GT, PAIN WITH R LE MMT, DECREASED LE FUNCTIONAL STRENGTH. 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 HAS FU WITH ORTHO ON 08/07. SHOULD BENEFIT FROM PT TO ADDRESS THESE ISSUES. OF NOTE, Pt REPORTS FEELING BETTER SINCE INITIAL INJURY Frequency and Duration: The patient will be seen 2X/WK X 6 WKS Short Term Goals: 1. INCREASED AWARENESS LE CARE 2. I HEP WITH DC EX PLAN 3. 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 INCREASED R KNEE FLEX 5-10 DEGREES 2. DECREASED R KNEE PAIN AT LEAST 50% WITH ADLS 3. RTW Treatment Plan: Modalities to reduce pain, spasms and effusion. Manual therapy to restore motion and function. Therapeutic exercise to improve strength and flexibility. Neuromuscular re-education for posture and balance. Therapeutic activities to return to functional activities of daily living. Electronically signed by: CHERYL VILCHIS PT Please sign and return to therapist. Thank you for your referral.
--- NOTE | 2023-09-07 10:30 | MHC.PT.DC ---
[facility] [place] Office [place] Office [place] Office [address] [place] 140 [facility] [phone] F: [phone] F: [phone] F: [phone] F: [phone] Physical Therapy Discharge Report Diagnosis: R HAMSTRING MM STRAIN Date of Surgery: NA Date of Evaluation: 07/18/23 Date of Discharge: 09/07/23 Treatments to Date: 7 Cancellations to Date: No Shows to Date: Discharge Status: Achieved Goals Improved Function Independent with HEP Patient Elected to Stop Discharge Summary: Pt HAS MET PT GOALS Electronically signed by: CHERYL VILCHIS PT Please sign and return to therapist. Thank you for your referral.
== END 2023-09-07 10:32 | disposition home or self-care (01) ==
LOC: HO.PTWFD 08:00
PROVIDERS: PCP Internal Medicine; Visit Provider Physician Assistant
DX: S76.311D Strain of muscle, fascia and tendon of the posterior muscle group at thigh level, right thigh, subsequent encounter (principal)
CPT/HCPCS: 97110; 97140; 97150; 97161; 97535

== ENCOUNTER 2023-09-11 09:57 | Outpatient (AMB) | payer OTHER, SELFPAY ==
[2023-09-11 09:58] VITALS: BP 138/86; PULSE 62; O2SAT 100; BMI 46.3
--- NOTE | 2023-09-11 09:58 | A.OFFPC_ITS ---
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 Allergies lisinopril [LISINOPRIL] Allergy (Severe, Verified 09/11/23 09:58) ANGIOEDEMA, COUGH mold Allergy (Severe, Verified 09/11/23 09:58) runnig nose / nasal simvastatin [SIMVASTATIN] Allergy (Intermediate, Verified 09/11/23 09:58) SWOLLEN JOINTS Medication List - Last Reconciled 09/11/23 by Jeremy Willis MD amoxicillin-pot clavulanate 500-125 mg (Augmentin) 1 tab PO Q12H [AUTO PAP 6-16 cm H2O humidified AIR As directed] cholecalciferol (vitamin D3) 25 mcg PO DAILY clotrimazole 1% 1 appl topical BID 4 weeks cyanocobalamin (vitamin B-12) 1,000 mcg PO DAILY fexofenadine (Mulu Allergy) 180 mg PO DAILY hydrocortisone 2.5% (Proctosol HC) 1 appl CA BID-QID PRN ipratropium bromide 2 sprays intranasal BID irbesartan 75 mg PO DAILY metformin 500 mg PO BID metoprolol succinate ER 50 mg PO DAILY 90 days miconazole nitrate 2% (Zeasorb AF) 1 appl topical BID omeprazole 40 mg PO DAILY pravastatin 10 mg PO DAILY sitagliptin phosphate (Januvia) 100 mg PO DAILY triamcinolone acetonide 0.5% 1 appl topical BID Tobacco use date assessed: 09/11/23 Fall risk assessment: No Falls in past year Last assessed Fall Risk: 09/11/23 HPI Bilateral leg rash HPI Details 63-year-old morbidly obese male with jovani betes mellitus hypercholesterolemia GERD obstructive sleep apnea hypertension coming in for an acute problem of leg swelling. Patient was recently treated for sinus problems with an antibiotic which she has taken before. Otherwise November A1c was 6.9. this has occurred last week before the antibiotic was exposed in the cold and h ad erythematous rash then diappeared but came back again this time prompting for consultation [facility] Medical History (Updated 09/11/23 @ 10:21 by Jeremy Willis MD) Tinea pedis Dysuria Right inguinal hernia Renal calculi Iron deficiency anemia Obstructive sleep apnea Obesity GERD (gastroesophageal reflux disease) Anxiety Insomnia Hypercholesterolemia Type 2 diabetes mellitus with hyperglycemia Vitamin D deficiency Allergic rhinitis Hypertension Surgical History History of tonsillectomy and adenoidectomy History of ear surgery History of inguinal hernia repair Family History Father Hypertension CVD (cardiovascular disease) Myocardial infarction Mother Hypertension CVD (cardiovascular disease) CAD (coronary artery disease) Sister Myocardial infarction Brother Alcohol abuse CVA (cerebral vascular accident) Social History Housing: House Alcohol intake: current Alcohol intake frequency: holidays/special occasions only Alcohol type: beer Patient Tobacco Use Status: Never used Tobacco e-Cigarette/Vaping Use: Never Used Second Hand Smoke Exposure: No service: No Current occupational status: employed Cognitive needs: No Hearing needs: Yes Vision needs: No Questionnaire Thrive Questionnaire Date Thrive assessed: 12/28/22 AUDIT C Alcohol Use Questionnaire (AUDIT-C) 1. How often do you have a drink containing alcohol?: Monthly or less 2. How many drinks containing alcohol do you have on a typical day when you are drinking?: 1 or 2 3. How often do you have six or more drinks on one occasion?: Never Total Score: 1 Score Reviewed/Action Taken: No TONNY-7 AMB Questionnaire TONNY-7 Date TONNY - 7 assessed: 09/11/23 Source: Developed by Drs. Rajeev Adams, Macey Snow, Sammy Dejesus and colleagues, with an educational jaimie from [employer]. Physical exam (Primary Care) Vital Signs: Last Vital Signs Pulse 62 09/11/23 09:58 BP 138/86 09/11/23 09:58 Pulse Ox 100 09/11/23 09:58 Oxygen Delivery Method Room Air 09/11/23 09:58 BMI result Body Mass Index 46.3 Tobacco/Smoking Status: Tobacco use Status Tobacco use date assessed 09/11/23 09/11/23 10:03 Patient Tobacco Use Status Never used Tobacco 09/11/23 10:03 e-Cigarette/Vaping Use Never Used 09/11/23 10:03 Thrive Assessment: Date of Thrive Assessment Date Thrive assessed 12/28/22 09/11/23 10:03 Skin Other: Multiple pinkish rash over the leg all around 3 x 5 cm irregularly shaped bilateral with some mild swelling Assessment and Plan Assessment & Plan (1) Venous stasis dermatitis: Comment: Versus eczema Code(s): I87.2 - Venous insufficiency (chronic) (peripheral) Plan: discussed with steroid cream for 1 week. (2) Sinusitis: Code(s): J32.9 - Chronic sinusitis, unspecified Plan: Continue with antibiotic. Discussed that the rash is not from the antibiotic (3) Obesity: Code(s): E66.9 - Obesity, unspecified Qualifiers: Obesity type: due to excess calories Obesity classification: adult class 3 (BMI >= 40) Serious obesity comorbidity presence: with serious comorbidity Body mass index: BMI 40.0-44.9 Qualified Code(s): E66.01 - Morbid (severe) obesity due to excess calories; Z68.41 - Body mass index [BMI]40.0- 44.9, adult Plan: Diet and exercise noted gaining weight Medications: New triamcinolone acetonide 0.5% 1 appl topical BID 45 grams 1RF Coding Level of Care Code Est Pt Level 4 (19593) Diagnoses Venous stasis dermatitis I87.2 Sinusitis J32.9 Class 3 severe obesity due to excess calories with serious comorbidity and body mass index (BMI) of 40.0 to 44.9 in adult E66.01; Z68.41 Obesity type: due to excess calories Obesity classification: adult class 3 (BMI >= 40) Serious obesity comorbidity presence: with serious comorbidity Body mass index: BMI 40.0-44.9
== END 2023-09-11 10:23 | disposition home or self-care (01) ==
PROVIDERS: PCP Internal Medicine; Visit Provider Internal Medicine
DX: I87.2 Venous insufficiency (chronic) (peripheral) (principal); J32.9 Chronic sinusitis, unspecified; E66.01 Morbid (severe) obesity due to excess calories; Z68.41 Body mass index [BMI] 40.0-44.9, adult
CPT/HCPCS: 99214

== ENCOUNTER 2023-10-11 15:21 | Outpatient (AMB) | payer OTHER, SELFPAY ==
--- NOTE | 2023-10-11 15:22 | A.OFFPC_ITS ---
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 Last seen in August 2023 for sinus problems as well as venous stasis dermatitis. Discussed my concerns with the patient as he has diabetes and is morbidly obese but declined any new medication for control patient is aware of the complications of diabetes heart attacks renal problem strokes peripheral vascular disease but declines any new medication. [facility] Medical History (Updated 09/11/23 @ 10:21 by Jeremy Willis MD) Tinea pedis Dysuria Right inguinal hernia Renal calculi Iron deficiency anemia Obstructive sleep apnea Obesity GERD (gastroesophageal reflux disease) Anxiety Insomnia Hypercholesterolemia Type 2 diabetes mellitus with hyperglycemia Vitamin D deficiency Allergic rhinitis Hypertension Surgical History History of tonsillectomy and adenoidectomy History of ear surgery History of inguinal hernia repair Family History Father Hypertension CVD (cardiovascular disease) Myocardial infarction Mother Hypertension CVD (cardiovascular disease) CAD (coronary artery disease) Sister Myocardial infarction Brother Alcohol abuse CVA (cerebral vascular accident) Social History Housing: House Alcohol intake: current Alcohol intake frequency: holidays/special occasions only Alcohol type: beer Patient Tobacco Use Status: Never used Tobacco e-Cigarette/Vaping Use: Never Used Second Hand Smoke Exposure: No service: No Current occupational status: employed Cognitive needs: No Hearing needs: Yes Vision needs: No Questionnaire Thrive Questionnaire Date Thrive assessed: 12/28/22 AUDIT C Alcohol Use Questionnaire (AUDIT-C) 1. How often do you have a drink containing alcohol?: Monthly or less 2. How many drinks containing alcohol do you have on a typical day when you are drinking?: 1 or 2 3. How often do you have six or more drinks on one occasion?: Never Total Score: 1 Score Reviewed/Action Taken: No TONNY-7 AMB Questionnaire TONNY-7 Date TONNY - 7 assessed: 09/11/23 Source: Developed by Drs. Rajeev Adams, Macey Snow, Sammy Dejesus and colleagues, with an educational jaimie from [employer]. Physical exam (Primary Care) Vital Signs: Last Vital Signs Pulse 72 10/11/23 15:23 BP 108/66 10/11/23 15:23 Pulse Ox 99 10/11/23 15:23 Oxygen Delivery Method Room Air 10/11/23 15:23 BMI result Body Mass Index 45.7 Tobacco/Smoking Status: Tobacco use Status Tobacco use date assessed 10/11/23 10/11/23 15:23 Patient Tobacco Use Status Never used Tobacco 10/11/23 15:23 e-Cigarette/Vaping Use Never Used 10/11/23 15:23 Thrive Assessment: Date of Thrive Assessment Date Thrive assessed 12/28/22 10/11/23 15:23 Const General: alert; No acute distress Eyes Conjunctivae: conjunctivae normal Resp Auscultation: clear to auscultation bilaterally Cardio Rate: regular rate Rhythm: regular rhythm GI Inspection: Yes normal to inspection Extrem General: Yes normal to inspection and No edema Results AMB Hemoglobin A1c AMB Hemoglobin A1c 7.2 % Last Edit by FRANCIS Solano on 10/11/23 15:35 Results Reviewed Results Reviewed: Laboratory Last Values Hgb A1c (Clinic) 7.2 % (4.0-6.0) H 10/11/23 14:49 Assessment and Plan Assessment & Plan (1) Type 2 diabetes mellitus with hyperglycemia: Comment: Dr. 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 Hemoglobin A1c goal of less than 6.5. Patient is on metformin 500 mg twice a day Januvia 100 mg once a day. decline new med. (2) Hypertension: Code(s): I10 - Essential (primary) hypertension Qualifiers: Hypertension type: essential hypertension Qualified Code(s): I10 - Essential (primary) hypertension Plan: Continue with blood pressure medication. Decrease salt intake and exercise patient is on metoprolol 50 mg once a day irbesartan 75 mg once a day (3) Hypercholesterolemia: Code(s): E78.00 - Pure hypercholesterolemia, unspecified Plan: Avoid fried foods, chicken skin, eggs, butter margarine, pastries and meat. Be it pork or beef they have a lot of cholesterol LDL goal of less than 100 presently on pravastatin 10 mg once a day March 2023 last blood (4) GERD (gastroesophageal reflux disease): Code(s): K21.9 - Gastro-esophageal reflux disease without esophagitis Qualifiers: Esophagitis presence: without esophagitis Qualified Code(s): K21.9 - Gastro-esophageal reflux disease without esophagitis Plan: Avoid the foods that causes that usually spicy foods, tomato products, juices, coffee, soda and foods that your sensitive to. After eating do not lie down, allow 3-4 hours before in lie down. And keep the head of bed above 30 degrees to avoid the acid from going up. (5) Obesity: Code(s): E66.9 - Obesity, unspecified Qualifiers: Obesity type: due to excess calories Obesity classification: adult class 3 (BMI >= 40) Serious obesity comorbidity presence: with serious comorbidity Body mass index: BMI 40.0-44.9 Qualified Code(s): E66.01 - Morbid (severe) obesity due to excess calories; Z68.41 - Body mass index [BMI]40.0- 44.9, adult Plan: Diet and exercise noted 3 lb weight loss (6) Obstructive sleep apnea: Comment: CPAP use Q night > 4 hours and benefits patient Sleep study October 2022 Code(s): G47.33 - Obstructive sleep apnea (adult) (pediatric) Plan: Continue to use the CPAP more than 4 hours a night and benefits from this. (7) Right hamstring muscle strain: Code(s): S76.311A - Strain of muscle, fascia and tendon of the posterior muscle group at thigh level, right thigh, initial encounter Qualifiers: Encounter type: initial encounter Qualified Code(s): S76.311A - Strain of muscle, fascia and tendon of the posterior muscle group at thigh level, right thigh, initial encounter Plan: Patient was seen by ortho sent for physical therapy but doing exercise now Orders: Orders AMB Hemoglobin A1c Today E11.65 - Type 2 diabetes mellitus with hyperglycemia Coding Level of Care Code Est Pt Level 4 (18324) Diagnoses Type 2 diabetes mellitus with hyperglycemia, without long-term current use of insulin E11.65 Diabetes mellitus long-term insulin use: without superintendent marine oil terminal use Essential hypertension I10 Hypertension type: essential hypertension Hypercholesterolemia E78.00 Gastroesophageal reflux disease without esophagitis K21.9 Esophagitis presence: without esophagitis Class 3 severe obesity due to excess calories with serious comorbidity and body mass index (BMI) of 40.0 to 44.9 in adult E66.01; Z68.41 Obesity type: due to excess calories Obesity classification: adult class 3 (BMI >= 40) Serious obesity comorbidity presence: with serious comorbidity Body mass index: BMI 40.0-44.9 Obstructive sleep apnea G47.33 Strain of right hamstring muscle, initial encounter S76.311A Encounter type: initial encounter
[2023-10-11 15:23] VITALS: BP 108/66; PULSE 72; O2SAT 99; BMI 45.7
== END 2023-10-11 15:59 | disposition home or self-care (01) ==
PROVIDERS: PCP Internal Medicine; Visit Provider Internal Medicine
DX: E11.65 Type 2 diabetes mellitus with hyperglycemia (principal); E66.01 Morbid (severe) obesity due to excess calories; Z68.41 Body mass index [BMI] 40.0-44.9, adult; I10 Essential (primary) hypertension; E78.00 Pure hypercholesterolemia, unspecified; K21.9 Gastro-esophageal reflux disease without esophagitis; G47.33 Obstructive sleep apnea (adult) (pediatric); S76.311A Strain of muscle, fascia and tendon of the posterior muscle group at thigh level, right thigh, initial encounter
CPT/HCPCS: 83036; 99214

== ENCOUNTER 2023-11-12 10:09 | Outpatient (AMB) | payer OTHER, SELFPAY ==
--- NOTE | 2023-11-12 10:23 | A.OFFVIS_ITS ---
Intake Vital Signs 11/12/23 10:33 Height 5 ft 2 in Weight 250 lb BMI 45.7 BP 148/88 H Blood Pressure Location Lt brachial Position Sitting Pulse 87 Pulse Source Pulse Oximeter Pulse Oximetry (%) 99 Oxygen Delivery Method Room Air Intake Visit Reasons: 1 year follow up Intake Note: PT HERE TODAY FOR 1 YEAR FOLLOW UP, NO CONCERNS. Information Interpreted: non-clinical & clinical Accompanied by: Self / Same As Patient Allergies lisinopril [LISINOPRIL] Allergy (Severe, Verified 11/12/23 10:24) ANGIOEDEMA, COUGH mold Allergy (Severe, Verified 11/12/23 10:24) runnig nose / nasal simvastatin [SIMVASTATIN] Allergy (Intermediate, Verified 11/12/23 10:24) SWOLLEN JOINTS HPI 1 year follow up HPI Details LAST VISIT GERD (gastroesophageal reflux disease) Will change patient's dose and frequency of omeprazole. Patient can take 40 mg of omeprazole in the morning. Patient states that insert and was not covering his 20 mg dose twice a day. Discussed with patient avoiding dietary triggers and late night snacking. Staying upright for minimum 3 hours after meals discussed with patient. Patient will follow-up in 1 year, sooner on as needed basis. Patient is agreeable to this plan and verbalizes understanding of instructions. He was given the opportunity to ask questions and all questions answered. ? Thank you for allowing me to participate in his care Plan Medications New omeprazole 40 mg PO DAILY 30 caps 7RF K21.9 Discontinued omeprazole Discontinued Reason: Doctor's Order 20 mg PO BID 60 caps 6RF TODAY'S VISIT Patient is here today for follow-up. Patient reports that he has been doing well with omeprazole 40 mg. Patient states that only when he eats something spicy or late at night he will have acid reflux. Patient denies dyspepsia, dysphagia or odynophagia. Patient denies melena, hematochezia, unintentional weight loss or ribbon like stools patient reports that he has been feeling well. Reports that he is moving his bowels, however sometimes he feels like he has to strain. Patient denies any other GI concerning symptoms. He will be due to go for colonoscopy in August of 2024 [facility] Medical History Tinea pedis Dysuria Right inguinal hernia Renal calculi Iron deficiency anemia Obstructive sleep apnea Obesity GERD (gastroesophageal reflux disease) Anxiety Insomnia Hypercholesterolemia Type 2 diabetes mellitus with hyperglycemia Vitamin D deficiency Allergic rhinitis Hypertension Surgical History History of tonsillectomy and adenoidectomy History of ear surgery History of inguinal hernia repair Family History Father Hypertension CVD (cardiovascular disease) Myocardial infarction Mother Hypertension CVD (cardiovascular disease) CAD (coronary artery disease) Sister Myocardial infarction Brother Alcohol abuse CVA (cerebral vascular accident) Social History Housing: House Alcohol intake: current Alcohol intake frequency: holidays/special occasions only Alcohol type: beer Patient Tobacco Use Status: Never used Tobacco e-Cigarette/Vaping Use: Never Used Second Hand Smoke Exposure: No service: No Current occupational status: employed Cognitive needs: No Hearing needs: Yes Vision needs: No Review of Systems Const Denies weight gain and Denies weight loss ENT Reports no additional complaints, Denies dysphagia and Denies odynophagia Card Reports no additional complaints Resp Reports no additional complaints GI Denies abdominal pain, Denies belching, Denies melena, Denies bloating, Reports constipation, Denies dysphagia, Denies excessive flatus, Denies dyspepsia, Denies heartburn, Denies diarrhea, Denies loose stools, Denies nausea, Denies odynophagia and Denies vomiting Reports no additional complaints Musc Reports no additional complaints Neuro Reports no additional complaints Psych Reports no additional complaints Endo Reports no additional complaints Physical Exam Vital Signs: Last Vital Signs Pulse 87 11/12/23 10:33 BP 148/88 H 11/12/23 10:33 Pulse Ox 99 11/12/23 10:33 Oxygen Delivery Method Room Air 11/12/23 10:33 BMI result Body Mass Index 45.7 Const General: healthy appearing and no acute distress Nutritional Appearance: obese Orientation/consciousness: patient oriented x3 Resp Effort & Inspection: normal respiratory effort, able to speak in complete sentences, no tracheal deviation and symmetric chest movement Auscultation: clear to auscultation bilaterally Cardio Rate: regular rate GI Inspection: Yes normal to inspection, No distended and Yes obesity Palpation (GI): Soft to palpation, not firm, nontender and No hepatosplenomegaly present Auscultation: normal bowel sounds General: Yes no CVA tenderness Back/Spine/Pelvis Back: no CVA tenderness Skin General skin exam: elasticity normal, turgor normal and dry skin Neuro General: patient oriented x3 Psych Appearance: grossly normal Mental Status: mental status grossly normal Assessment & Plan Assessment & Plan (1) GERD (gastroesophageal reflux disease): Code(s): K21.9 - Gastro-esophageal reflux disease without esophagitis Qualifiers: Esophagitis presence: without esophagitis Qualified Code(s): K21.9 - Gastro-esophageal reflux disease without esophagitis (2) Constipation: Code(s): K59.00 - Constipation, unspecified Qualifiers: Constipation type: slow transit constipation Qualified Code(s): K59.01 - Slow transit constipation Plan Continue omeprazole 40 mg daily. Continue avoiding dietary triggers and late night snacking. Staying upright for minimal 3 hours after meals discussed with patient Patient will start taking MiraLax daily to help her move his bowels. Patient was also encouraged to increase fluid intake and activity to promote better bowel motility. I will see him in a months to discuss going for colonoscopy. Patient will be due in August of 2024. He is agreeable to this plan and verbalizes understanding of instructions. He was given the opportunity to ask questions and all questions answered. Thank you for allowing to participate in his care Medications: New polyethylene glycol 3350 (Miralax) 17 grams PO DAILY 510 grams 2RF Coding Level of Care Code Est Pt Level 3 (95759) Diagnoses Gastroesophageal reflux disease without esophagitis K21.9 Esophagitis presence: without esophagitis Slow transit constipation K59.01 Constipation type: slow transit constipation Time Spent (min) 25 Comment 15 minutes spent with patient and additional 10 minutes spent reviewing his records
[2023-11-12 10:33] VITALS: BP 148/88; PULSE 87; O2SAT 99; BMI 45.7
== END 2023-11-12 10:49 | disposition home or self-care (01) ==
PROVIDERS: PCP Internal Medicine; Visit Provider Nurse Practitioner Family
DX: K21.9 Gastro-esophageal reflux disease without esophagitis (principal); K59.01 Slow transit constipation
CPT/HCPCS: 99213

== ENCOUNTER → 2023-11-12 10:09 | Outpatient (BNVA) | payer OTHER, SELFPAY | PROVIDERS: PCP Internal Medicine; Visit Provider Nurse Practitioner Family ==

== ENCOUNTER 2024-01-17 15:48 | Outpatient (AMB) | payer OTHER, SELFPAY ==
[2024-01-17 15:51] VITALS: BP 132/80; PULSE 75; O2SAT 98; BMI 45.5
--- NOTE | 2024-01-17 15:51 | MHC.PC.OV ---
Vital Signs 01/17/24 15:51 Height 5 ft 2 in Weight 249 lb 0.8 oz BMI 45.5 BP 132/80 Blood Pressure Location Lt brachial Position Sitting Pulse 75 Pulse Source Pulse Oximeter Pulse Oximetry (%) 98 Oxygen Delivery Method Room Air Intake Visit Reasons: Diabetes mellitus Land [facility] Head Required: No Allergies lisinopril [LISINOPRIL] Allergy (Severe, Verified 01/17/24 15:52) ANGIOEDEMA, COUGH mold Allergy (Severe, Verified 01/17/24 15:52) runnig nose / nasal simvastatin [SIMVASTATIN] Allergy (Intermediate, Verified 01/17/24 15:52) SWOLLEN JOINTS Medication List - Last Reconciled 01/17/24 by Jeremy Willis MD [AUTO PAP 6-16 cm H2O humidified AIR As directed] cholecalciferol (vitamin D3) 25 mcg PO DAILY clotrimazole 1% 1 appl topical BID 4 weeks cyanocobalamin (vitamin B-12) 1,000 mcg PO DAILY empagliflozin (Jardiance) 10 mg PO DAILY fexofenadine (Mulu Allergy) 180 mg PO DAILY hydrocortisone 2.5% (Proctosol HC) 1 appl MI BID-QID PRN ipratropium bromide 2 sprays intranasal BID irbesartan 75 mg PO DAILY metformin 500 mg PO BID metoprolol succinate ER 50 mg PO DAILY 90 days miconazole nitrate 2% (Zeasorb AF) 1 appl topical BID omeprazole 40 mg PO DAILY polyethylene glycol 3350 (Miralax) 17 grams PO DAILY pravastatin 10 mg PO DAILY sitagliptin phosphate (Januvia) 100 mg PO DAILY Tobacco use date assessed: 01/17/24 Fall risk assessment: No Falls in past year Last assessed Fall Risk: 01/17/24 Dental Screening Dental Screen Date: 07/02/23 HPI Diabetes mellitus HPI Details 63-year-old I have to wash hands before morbidly obese male with uncontrolled diabetes mellitus hypertension hypercholesterolemia GERD obstructive sleep apnea coming in for follow-up. Last seen in 10/09/2023. Patient's colonoscopy is up-to-date 09/08/2019 has seen gastroenterology in 11/07/2023 for GERD on omeprazole patient also was given MiraLax to help with the constipation. L groin pain 4 weeks ago any fall or trauma and concerned about renal calculi. Patient did have a hernia repair there but does not note any mass or bulge there.L groin pain [facility] Medical History Tinea pedis Dysuria Right inguinal hernia Renal calculi Iron deficiency anemia Obstructive sleep apnea Obesity GERD (gastroesophageal reflux disease) Anxiety Insomnia Hypercholesterolemia Type 2 diabetes mellitus with hyperglycemia Vitamin D deficiency Allergic rhinitis Hypertension Surgical History History of tonsillectomy and adenoidectomy History of ear surgery History of inguinal hernia repair Family History Father Hypertension CVD (cardiovascular disease) Myocardial infarction Mother Hypertension CVD (cardiovascular disease) CAD (coronary artery disease) Sister Myocardial infarction Brother Alcohol abuse CVA (cerebral vascular accident) Social History Housing: House Alcohol intake: current Alcohol intake frequency: holidays/special occasions only Alcohol type: beer Patient Tobacco Use Status: Never used Tobacco e-Cigarette/Vaping Use: Never Used Second Hand Smoke Exposure: No service: No Current occupational status: employed Cognitive needs: No Hearing needs: Yes Vision needs: No Questionnaire Thrive Questionnaire Date Thrive assessed: 12/28/22 AUDIT C Alcohol Use Questionnaire (AUDIT-C) 1. How often do you have a drink containing alcohol?: Monthly or less 2. How many drinks containing alcohol do you have on a typical day when you are drinking?: 1 or 2 3. How often do you have six or more drinks on one occasion?: Never Total Score: 1 Score Reviewed/Action Taken: No TONNY-7 AMB Questionnaire TONNY-7 Date TONNY - 7 assessed: 09/11/23 Source: Developed by Drs. Rajeev Adams, Macey Snow, Sammy Dejesus and colleagues, with an educational jaimie from [employer]. Physical exam (Primary Care) Vital Signs: Last Vital Signs Pulse 75 01/17/24 15:51 BP 132/80 01/17/24 15:51 Pulse Ox 98 01/17/24 15:51 Oxygen Delivery Method Room Air 01/17/24 15:51 BMI result Body Mass Index 45.5 Tobacco/Smoking Status: Tobacco use Status Tobacco use date assessed 01/17/24 01/17/24 15:52 Patient Tobacco Use Status Never used Tobacco 01/17/24 15:52 e-Cigarette/Vaping Use Never Used 01/17/24 15:52 Thrive Assessment: Date of Thrive Assessment Date Thrive assessed 12/28/22 01/17/24 15:52 Const General: alert; No acute distress Eyes Conjunctivae: conjunctivae normal Resp Auscultation: clear to auscultation bilaterally Cardio Rate: regular rate Rhythm: regular rhythm GI Inspection: Yes normal to inspection Other: L groin pain , will continue to ff up Extrem General: Yes normal to inspection and No edema Results AMB Hemoglobin A1c AMB Hemoglobin A1c 7.5 % Last Edit by FRANCIS Solano on 01/17/24 16:05 AMB Urinalysis, Automated UA Leukoctes 0 Garth/uL Last Edit by FRANCIS Solano on 01/17/24 16:28 UA Nitrite Negative Last Edit by FRANCIS Solano on 01/17/24 16:28 UA Urobilinogen 0.2 mg/dL Last Edit by FRANCIS Solano on 01/17/24 16:28 UA Protein 15 mg/dL Last Edit by FRANCIS Solano on 01/17/24 16:28 UA pH 5.5 Last Edit by RFANCIS Solano on 01/17/24 16:28 UA Blood 0 David/uL Last Edit by FRANCIS Solano on 01/17/24 16:28 UA Specific [place] 1.030 Last Edit by FRANCIS Solano on 01/17/24 16:28 UA Ketone Negative Last Edit by FRANCIS Solano on 01/17/24 16:28 UA Bilirubin 0 mg/dL Last Edit by FRANCIS Solano on 01/17/24 16:28 UA Glucose 0 mg/dL Last Edit by FRANCIS Solano on 01/17/24 16:28 Results Reviewed Results Reviewed: Laboratory Last Values Hgb A1c (Clinic) 7.5 % (4.0-6.0) H 01/17/24 15:10 Assessment and Plan Assessment & Plan (1) Type 2 diabetes mellitus with hyperglycemia: Comment: Dr. Ortez Code(s): E11.65 - Type 2 diabetes mellitus with hyperglycemia Qualifiers: Diabetes mellitus [facility] insulin use: without [facility] use Qualified Code(s): E11.65 - Type 2 diabetes mellitus with hyperglycemia Plan: Decrease the amount of carbohydrate intake, pasta, bread, rice and potatoes are all sugar and that is aside from all the sweet stuff, remember that fruits are good but they are Sweet also. Patient is presently on metformin 500 mg twice a day and Januvia 100 mg once a day (2) Hypercholesterolemia: Code(s): E78.00 - Pure hypercholesterolemia, unspecified Plan: Avoid fried foods, chicken skin, eggs, butter margarine, pastries and meat. Be it pork or beef they have a lot of cholesterol on pravastatin 10 mg once a day 04/08/2023 last blood work (3) GERD (gastroesophageal reflux disease): Code(s): K21.9 - Gastro-esophageal reflux disease without esophagitis Qualifiers: Esophagitis presence: without esophagitis Qualified Code(s): K21.9 - Gastro-esophageal reflux disease without esophagitis Plan: Avoid the foods that causes that usually spicy foods, tomato products, juices, coffee, soda and foods that your sensitive to. After eating do not lie down, allow 3-4 hours before in lie down. And keep the head of bed above 30 degrees to avoid the acid from going up. (4) Obesity: Code(s): E66.9 - Obesity, unspecified Qualifiers: Obesity type: due to excess calories Obesity classification: adult class 3 (BMI >= 40) Serious obesity comorbidity presence: with serious comorbidity Body mass index: BMI 40.0-44.9 Qualified Code(s): E66.01 - Morbid (severe) obesity due to excess calories; Z68.41 - Body mass index [BMI]40.0-44.9, adult Plan: Diet and exercise (5) Obstructive sleep apnea: Comment: CPAP use Q night > 4 hours and benefits patient Sleep study October 2022 Code(s): G47.33 - Obstructive sleep apnea (adult) (pediatric) Plan: Continue with CPAP more than 4 hours a night and benefits from this. (6) Hypertension: Code(s): I10 - Essential (primary) hypertension Qualifiers: Hypertension type: essential hypertension Qualified Code(s): I10 - Essential (primary) hypertension Plan: Continue with blood pressure medication. Decrease salt intake and exercise on metoprolol 50 mg once a day irbesartan 75 mg once a day Orders: Orders AMB Urinalysis Automated Today Z13.9 - Encounter for screening, unspecified AMB Hemoglobin A1c Today E11.65 - Type 2 diabetes mellitus with hyperglycemia Medications: New empagliflozin (Jardiance) 10 mg PO DAILY 30 tabs 5RF E11.65 - Type 2 diabetes mellitus with hyperglycemia Refilled sitagliptin phosphate (Januvia) 100 mg PO DAILY 90 tabs 2RF E11.65 - Type 2 diabetes mellitus with hyperglycemia Coding Level of Care Code Est Pt Level 4 (83075) Complex EM visit Add On G2211 Diagnoses Type 2 diabetes mellitus with hyperglycemia, without long-term current use of insulin E11.65 Diabetes mellitus [facility]aker insulin use: without [facility] use Hypercholesterolemia E78.00 Gastroesophageal reflux disease without esophagitis K21.9 Esophagitis presence: without esophagitis Class 3 severe obesity due to excess calories with serious comorbidity and body mass index (BMI) of 40.0 to 44.9 in adult E66.01; Z68.41 Obesity type: due to excess calories Obesity classification: adult class 3 (BMI >= 40) Serious obesity comorbidity presence: with serious comorbidity Body mass index: BMI 40.0-44.9 Obstructive sleep apnea G47.33 Essential hypertension I10 Hypertension type: essential hypertension
== END 2024-01-17 16:46 | disposition home or self-care (01) ==
PROVIDERS: PCP Internal Medicine; Visit Provider Internal Medicine
DX: E11.65 Type 2 diabetes mellitus with hyperglycemia (principal); E78.00 Pure hypercholesterolemia, unspecified; K21.9 Gastro-esophageal reflux disease without esophagitis; E66.01 Morbid (severe) obesity due to excess calories; Z68.41 Body mass index [BMI] 40.0-44.9, adult; G47.33 Obstructive sleep apnea (adult) (pediatric); I10 Essential (primary) hypertension; Z13.9 Encounter for screening, unspecified
CPT/HCPCS: 81003; 83036; 99214

== ENCOUNTER 2024-01-31 16:35 | Outpatient (AMB) | payer OTHER, SELFPAY ==
[2024-01-31 16:37] VITALS: BP 130/74; PULSE 74; O2SAT 98; BMI 43.9
--- NOTE | 2024-01-31 16:37 | A.OFFPC_ITS ---
Vital Signs 3 01/31/24 16:37 Height 5 ft 2 in Weight 240 lb BMI 43.9 BP 130/74 Blood Pressure Location Lt brachial Position Sitting Pulse 74 Pulse Source Pulse Oximeter Pulse Oximetry (%) 98 Oxygen Delivery Method Room Air Intake Visit Reasons: lump on collar bone (left side) Allergist/Immunologist Physician Required: No Allergies lisinopril [LISINOPRIL] Allergy (Severe, Verified 01/31/24 16:40) ANGIOEDEMA, COUGH mold Allergy (Severe, Verified 01/31/24 16:40) runnig nose / nasal simvastatin [SIMVASTATIN] Allergy (Intermediate, Verified 01/31/24 16:40) SWOLLEN JOINTS Tobacco use date assessed: 01/31/24 Fall risk assessment: No Falls in past year Last assessed Fall Risk: 01/31/24 Dental Screening Dental Screen Date: 01/31/24 HPI lump on collar bone (left side) 2 HPI0 Details 63-year-old morbidly obese male(noted) 9 lb weight loss with uncontrolled diabetes mellitus hypercholesterolemia GERD obstructive sleep apnea hypertension last seen in 01/17/2024 patient is up-to-date with colonoscopy. Patient comes in bringing in the glucometer and did teaching to use the glucometer. Blood sugar at this point nonfasting is 109. Patient also complained of left supraclavicular fossa fullness although patient has noted this for long time already it was brought to my attention the concern on having this problem denies any nausea or vomiting weight loss just now after starting on Jardiance appetite is good no sweatiness no nausea no vomiting. [facility] Medical History (Updated 01/31/24 @ 17:17 by Jeremy Willis MD) Neck fullness Tinea pedis Dysuria Right inguinal hernia Renal calculi Iron deficiency anemia Obstructive sleep apnea Obesity GERD (gastroesophageal reflux disease) Anxiety Insomnia Hypercholesterolemia Type 2 diabetes mellitus with hyperglycemia Vitamin D deficiency Allergic rhinitis Hypertension Surgical History History of tonsillectomy and adenoidectomy History of ear surgery History of inguinal hernia repair Family History Father Hypertension CVD (cardiovascular disease) Myocardial infarction Mother Hypertension CVD (cardiovascular disease) CAD (coronary artery disease) Sister Myocardial infarction Brother Alcohol abuse CVA (cerebral vascular accident) Social History Housing: House Alcohol intake: current Alcohol intake frequency: holidays/special occasions only Alcohol type: beer Patient Tobacco Use Status: Never used Tobacco e-Cigarette/Vaping Use: Never Used Second Hand Smoke Exposure: No service: No Current occupational status: employed Cognitive needs: No Hearing needs: Yes Vision needs: No Questionnaire PHQ-9 Over the last 2 weeks, how often have you been bothered by any of the following problems? 1. Little interest or pleasure in doing things: not at all 2. Feeling down, depressed, or hopeless: not at all 3. Trouble falling or staying asleep, or sleeping too much: not at all 4. Feeling tired or having little energy: not at all 5. Poor appetite or overeating: not at all 6. Feeling bad about yourself - or that you are a failure or have let yourself or your family down: not at all 7. Trouble concentrating on things, such as reading the newspaper or watching television: not at all 8. Moving or speaking so slowly that other people could have noticed. Or the opposite - being so fidgety or restless that you have been moving around a lot more than usual: not at all 9. Thoughts that you would be better off or of hurting yourself in some way: not at all Total score: 0 Depression Screening Interpretation: Negative Depression Screening Done: Yes Source: Developed by Drs. Rajeev Adams, Macey Snow, Sammy Dejesus and colleagues, with an educational jaimie from [employer]. Thrive Questionnaire Date Thrive assessed: 01/31/24 I am a: Patient What is your living situation today?: I have a steady place to live Within the past 12 months, did the food you bought not last and you didn't have the money to get more?: Never true Within the past 12 months, did you worry whether your food would run out before you got money to buy more?: Never true Do you have trouble paying for medicines?: No Do you have trouble getting transportation to medical appointments?: No Do you have trouble paying your heating and electricity bill?: No Do you have trouble taking care of your child, family member or friend?: No Do you have trouble with day-to-day activities such as bathing, preparing meals, shopping, managing finances, etc.?: No Are you currently unemployed and looking for a job?: No Are you interested in more education?: No Please select the resources that you would like help with: None Currently or been in a relationship where the following occur: no concerns reported THRIVE Score: 0 AUDIT C Alcohol Use Questionnaire (AUDIT-C) 1. How often do you have a drink containing alcohol?: Monthly or less 2. How many drinks containing alcohol do you have on a typical day when you are drinking?: 1 or 2 3. How often do you have six or more drinks on one occasion?: Never Total Score: 1 Score Reviewed/Action Taken: No TONNY-7 AMB Questionnaire TONNY-7 Date TONNY - 7 assessed: 09/11/23 Source: Developed by Drs. Rajeev Adams, Macey Snow, Sammy Dejesus and colleagues, with an educational jaimie from [employer]. Physical exam (Primary Care) Vital Signs: Last Vital Signs Pulse 74 01/31/24 16:37 BP 130/74 01/31/24 16:37 Pulse Ox 98 01/31/24 16:37 Oxygen Delivery Method Room Air 01/31/24 16:37 BMI result Body Mass Index 43.9 Tobacco/Smoking Status: Tobacco use Status Tobacco use date assessed 01/31/24 01/31/24 16:43 Patient Tobacco Use Status Never used Tobacco 01/31/24 16:43 e-Cigarette/Vaping Use Never Used 01/31/24 16:43 PHQ-9: PHQ-9 Score PHQ-9: Total score 0 01/31/24 16:43 Depression Screening Interpretation: Negative Thrive Assessment: Date of Thrive Assessment Date Thrive assessed 01/31/24 01/31/24 16:43 Currently or been in a relationship where the following occur: no concerns reported Const General: alert; No acute distress Eyes Conjunctivae: conjunctivae normal Neck Neck images: 2 1. Supraclavicular fossa fullness noted Resp Auscultation: clear to auscultation bilaterally Cardio Rate: regular rate Rhythm: regular rhythm GI Inspection: Yes normal to inspection Extrem General: Yes normal to inspection and No edema Assessment and Plan Assessment & Plan (1) Obesity: Code(s): E66.9 - Obesity, unspecified Qualifiers: Obesity type: due to excess calories Obesity classification: adult class 3 (BMI >= 40) Serious obesity comorbidity presence: with serious comorbidity Body mass index: BMI 40.0-44.9 Qualified Code(s): E66.01 - Morbid (severe) obesity due to excess calories; Z68.41 - Body mass index [BMI]40.0- 44.9, adult Plan: Continue with diet and exercise noted 9 lb weight loss (2) Type 2 diabetes mellitus with hyperglycemia: Comment: Dr. Ortez Code(s): E11.65 - Type 2 diabetes mellitus with hyperglycemia Qualifiers: Diabetes mellitus parts counterman insulin use: without parts counterman use Q ualified Code(s): E11.65 - Type 2 diabetes mellitus with hyperglycemia Plan: Decrease the amount of carbohydrate intake, pasta, bread, rice and potatoes are all sugar and that is aside from all the sweet stuff, remember that fruits are good but they are Sweet also.. Hemoglobin A1c goal of less than 6.5. Did teaching on use of the glucometer. (3) Supraclavicular fossa fullness: Code(s): R22.2 - Localized swelling, mass and lump, trunk Plan: Will order for an x-ray and an ultrasound Orders: Orders 2 US soft tiss head and/or neck Today R22.2 - Localized swelling, mass and lump, trunk XR chest 2V Today R22.2 - Localized swelling, mass and lump, trunk Coding Level of Care Code Est Pt Level 4 (31508) Diagnoses Class 3 severe obesity due to excess calories with serious comorbidity and body mass index (BMI) of 40.0 to 44.9 in adult E66.01; Z68.41 Obesity type: due to excess calories Obesity classification: adult class 3 (BMI >= 40) Serious obesity comorbidity presence: with serious comorbidity Body mass index: BMI 40.0-44.9 Type 2 diabetes mellitus with hyperglycemia, without long-term current use of insulin E11.65 Diabetes mellitus parts counterman insulin use: without intermediate use Supraclavicular fossa fullness R22.2
== END 2024-01-31 17:12 | disposition home or self-care (01) ==
PROVIDERS: PCP Internal Medicine; Visit Provider Internal Medicine
DX: E66.01 Morbid (severe) obesity due to excess calories (principal); Z68.41 Body mass index [BMI] 40.0-44.9, adult; E11.65 Type 2 diabetes mellitus with hyperglycemia; R22.2 Localized swelling, mass and lump, trunk
CPT/HCPCS: 99214

== ENCOUNTER 2024-02-01 11:28 | Outpatient (REF) | payer OTHER, SELFPAY ==
--- NOTE | ~2024-02-01 | XR_ITS ---
EXAMINATION: XR CHEST CLINICAL INFORMATION: Localized swelling/mass or lump of the trunk COMPARISON: Previous chest x-ray most recent April 2018 TECHNIQUE: 2 views of the chest were obtained. FINDINGS: The cardiac and mediastinal contours are stable. The lungs are clear. No pleural effusion or pneumothorax. Degenerative changes of the spine. XR/XR chest 2V IMPRESSION: No evidence for acute disease in the chest.
--- NOTE | ~2024-02-01 | US_ITS ---
EXAMINATION: US SOFT TISSUE NECK CLINICAL INFORMATION: Fullness left supraclavicular region COMPARISON: None available. TECHNIQUE: Ultrasound of the neck soft tissues is performed with high- frequency rees-scale imaging and color Doppler in the bilateral supraclavicular regions. FINDINGS: No soft tissue mass enlarged lymph node or fluid collection seen. US/US soft tiss head and/or neck IMPRESSION: No abnormality in the left supraclavicular region seen by ultrasound.
== END 2024-02-01 11:29 | disposition home or self-care (01) ==
LOC: HO.US 11:28
PROVIDERS: PCP Internal Medicine; Visit Provider Internal Medicine
DX: R22.2 Localized swelling, mass and lump, trunk (principal)
CPT/HCPCS: 71046; 76536

== ENCOUNTER 2024-06-13 12:42 | Outpatient (AMB) | payer OTHER, SELFPAY ==
--- NOTE | 2024-06-13 12:48 | MHC.OFFVIS ---
Vital Signs 06/13/24 12:49 Height 5 ft 2 in Weight 235 lb 7.259 oz BMI 43.1 BP 118/80 Blood Pressure Location Rt brachial Position Sitting Pulse 68 Pulse Source Pulse Oximeter Pulse Oximetry (%) 98 Oxygen Delivery Method Room Air Intake Visit Reasons: 7 month follow up Intake Note: Relevant Flags or Indicators ? Requires Boner Meat? Chana Marcum presents in office today for a scheduled ~6 mos FUV. Pt believes that they are due for 5 year recall colo. CC; Since last visit; labs ordered ? none. Rx ordered ? yes; miralax daily. Diagnostics/images ordered ? none. Relevant GI Sx as reported per pt? None ? Hx of any recent surgeries? None Boner Meat Required: No Allergies lisinopril [LISINOPRIL] Allergy (Severe, Verified 06/13/24 12:48) ANGIOEDEMA, COUGH mold Allergy (Severe, Verified 06/13/24 12:48) runnig nose / nasal simvastatin [SIMVASTATIN] Allergy (Intermediate, Verified 06/13/24 12:48) SWOLLEN JOINTS HPI HPI 7 month follow up: Details: LAST VISIT: GERD (gastroesophageal reflux disease) Constipation Plan Continue omeprazole 40 mg daily. Continue avoiding dietary triggers and late night snacking. Staying upright for minimal 3 hours after meals discussed with patient Patient will start taking MiraLax daily to help her move his bowels. Patient was also encouraged to increase fluid intake and activity to promote better bowel motility. I will see him in a months to discuss going for colonoscopy. Patient will be due in August of 2024. He is agreeable to this plan and verbalizes understanding of instructions. He was given the opportunity to ask questions and all questions answered. ? Thank you for allowing to participate in his care Medications New polyethylene glycol 3350 (Miralax) 17 grams PO DAILY 510 grams 2RF TODAY'S VISIT Patient is here today for follow-up and to discuss going for colonoscopy. Patient had colonoscopy in August of 2019 had no polyps, however on previous colonoscopy patient had tubular adenoma. Recommendation was made for 5 year follow-up. Patient denies any melena, hematochezia, unintentional weight loss or ribbon like stools. Patient denies any dyspepsia, dysphagia or odynophagia. Patient reports no issues with anesthesia in the past. History of sleep apnea, on CPAP. Denies any cardiac or respiratory symptoms. Reports to be doing well. He is taking Metamucil daily and reports that he is moving his bowels without any issues. Patient is taking omeprazole 40 mg every morning and his symptoms of acid reflux are suppressed. Patient denies any nausea or vomiting. Since last visit patient lost 15 lb. He is avoiding dietary triggers. Currently decreased soda intake. [facility] Medical History Neck fullness Tinea pedis Dysuria Right inguinal hernia Renal calculi Iron deficiency anemia Obstructive sleep apnea Obesity GERD (gastroesophageal reflux disease) Anxiety Insomnia Hypercholesterolemia Type 2 diabetes mellitus with hyperglycemia Vitamin D deficiency Allergic rhinitis Hypertension Surgical History History of tonsillectomy and adenoidectomy History of ear surgery History of inguinal hernia repair Family History Father Hypertension CVD (cardiovascular disease) Myocardial infarction Mother Hypertension CVD (cardiovascular disease) CAD (coronary artery disease) Sister Myocardial infarction Brother Alcohol abuse CVA (cerebral vascular accident) Social History Housing: House Alcohol intake: current Alcohol intake frequency: holidays/special occasions only Alcohol type: beer Patient Tobacco Use Status: Never used Tobacco e-Cigarette/Vaping Use: Never Used Second Hand Smoke Exposure: No service: No Current occupational status: employed Cognitive needs: No Hearing needs: Yes Vision needs: No Review of Systems Const Denies weight gain and Denies weight loss ENT Reports no additional complaints, Denies dysphagia and Denies odynophagia Card Reports no additional complaints Resp Reports no additional complaints GI Denies abdominal pain, Denies belching, Denies melena, Denies bloating, Denies change in bowel habits, Denies dysphagia, Denies excessive flatus, Denies dyspepsia, Denies heartburn, Denies diarrhea, Denies loose stools, Denies nausea, Denies odynophagia and Denies vomiting Reports no additional complaints Musc Reports no additional complaints Neuro Reports no additional complaints Psych Reports no additional complaints Endo Reports no additional complaints Physical Exam Vital Signs: Last Vital Signs Pulse 68 06/13/24 12:49 BP 118/80 06/13/24 12:49 Pulse Ox 98 06/13/24 12:49 Oxygen Delivery Method Room Air 06/13/24 12:49 BMI result Body Mass Index 43.1 Const General: healthy appearing and no acute distress Nutritional Appearance: obese Orientation/consciousness: patient oriented x3 Resp Effort & Inspection: normal respiratory effort, able to speak in complete sentences, no tracheal deviation and symmetric chest movement Auscultation: clear to auscultation bilaterally Cardio Rate: regular rate GI Inspection: Yes normal to inspection, No distended and Yes obesity Palpation (GI): Soft to palpation, not firm, nontender and No hepatosplenomegaly present Auscultation: normal bowel sounds General: Yes no CVA tenderness Back/Spine/Pelvis Back: no CVA tenderness Skin General skin exam: elasticity normal, turgor normal and dry skin Neuro General: patient oriented x3 Psych Appearance: grossly normal Mental Status: mental status grossly normal Assessment & Plan Assessment & Plan (1) GERD (gastroesophageal reflux disease): Code(s): K21.9 - Gastro-esophageal reflux disease without esophagitis Category: Medical Qualifiers: Esophagitis presence: without esophagitis Qualified Code(s): K21.9 - Gastro-esophageal reflux disease without esophagitis (2) Screen for colon cancer: Code(s): Z12.11 - Encounter for screening for malignant neoplasm of colon Plan What to expect before during and after procedure discussed with patient. Stressed the importance of good bowel prep and clear liquid diet day before procedure. Patient will stop Metamucil 3-5 days before procedure. Patient will continue taking omeprazole daily. Continue avoiding dietary triggers, avoid drinking soda and carbs. I will see patient after the procedure, sooner on as needed basis. He is agreeable to this plan and verbalizes understanding of instructions. He was given the opportunity to ask questions and all questions answered. Thank you for allowing me to participate in his care Medications: New bisacodyl (Dulcolax (bisacodyl)) take 4 tabs at noon the day before your colonoscopy 20 mg (4 x 5 mg) PO ONCE 1 day 4 tabs 0RF Z12.11 - Encounter for screening for malignant neoplasm of colon polyethylene glycol 3350 (Miralax) As directed by gastroenterology department at [facility] 238 grams PO ONCE 238 grams 0RF Z12.11 - Encounter for screening for malignant neoplasm of colon Coding Level of Care Code Est Pt Level 3 (11476) Diagnoses Gastroesophageal reflux disease without esophagitis K21.9 Esophagitis presence: without esophagitis Screen for colon cancer Z12.11 Time Spent (min) 30 Comment 20 minutes spent with patient and additional 10 minutes spent reviewing his records
[2024-06-13 12:49] VITALS: BP 118/80; PULSE 68; O2SAT 98; BMI 43.1
== END 2024-06-13 13:24 | disposition home or self-care (01) ==
PROVIDERS: PCP Internal Medicine; Visit Provider Nurse Practitioner Family
DX: K21.9 Gastro-esophageal reflux disease without esophagitis (principal); Z12.11 Encounter for screening for malignant neoplasm of colon
CPT/HCPCS: 99213

== ENCOUNTER → 2024-06-13 12:42 | Outpatient (BNVA) | payer OTHER, SELFPAY | PROVIDERS: PCP Internal Medicine; Visit Provider Nurse Practitioner Family ==

== ENCOUNTER 2024-06-24 15:47 | Outpatient (AMB) | payer OTHER, SELFPAY ==
[2024-06-24 15:58] VITALS: BP 140/88; PULSE 97; O2SAT 99; BMI 41.1
--- NOTE | 2024-06-24 15:58 | MHC.PC.OV ---
Vital Signs 06/24/24 15:58 06/24/24 16:32 Height 5 ft 2 in Weight 225 lb BMI 41.1 BP 140/88 H 110/80 Blood Pressure Location Lt brachial Lt brachial Position Sitting Sitting Pulse 97 Pulse Source Pulse Oximeter Pulse Oximetry (%) 99 Oxygen Delivery Method Room Air Intake Visit Reasons: 3 month f/u Glue Reel Operator Required: No Accompanied by: Self / Same As Patient Allergies lisinopril [LISINOPRIL] Allergy (Severe, Verified 06/24/24 15:58) ANGIOEDEMA, COUGH mold Allergy (Severe, Verified 06/24/24 15:58) runnig nose / nasal simvastatin [SIMVASTATIN] Allergy (Intermediate, Verified 06/24/24 15:58) SWOLLEN JOINTS Tobacco use date assessed: 01/31/24 Fall risk assessment: No Falls in past year Last assessed Fall Risk: 06/24/24 Dental Screening Dental Screen Date: 01/31/24 HPI 3 month f/u HPI Details 63-year-old morbidly obese male(noted 10 lb weight loss) with diabetes mellitus hypertension hypercholesterolemia GERD obstructive sleep apnea coming in for follow-up. Last seen in January 2024. Concern about supraclavicular fossa fullness and an x-ray was done. Colon test last done in 2019. Patient just met Gastroenterology and planning for colonoscopy. As for the GERD on medications. ON LICENSE OF [facility] Medical History Neck fullness Tinea pedis Dysuria Right inguinal hernia Renal calculi Iron deficiency anemia Obstructive sleep apnea Obesity GERD (gastroesophageal reflux disease) Anxiety Insomnia Hypercholesterolemia Type 2 diabetes mellitus with hyperglycemia Vitamin D deficiency Allergic rhinitis Hypertension Surgical History History of tonsillectomy and adenoidectomy History of ear surgery History of inguinal hernia repair Family History Father Hypertension CVD (cardiovascular disease) Myocardial infarction Mother Hypertension CVD (cardiovascular disease) CAD (coronary artery disease) Sister Myocardial infarction Brother Alcohol abuse CVA (cerebral vascular accident) Social History Housing: House Alcohol intake: current Alcohol intake frequency: holidays/special occasions only Alcohol type: beer Patient Tobacco Use Status: Never used Tobacco Tobacco use type: Cigarette e-Cigarette/Vaping Use: Never Used Second Hand Smoke Exposure: No service: No Current occupational status: employed Cognitive needs: No Hearing needs: Yes Vision needs: No Questionnaire PHQ-9 Over the last 2 weeks, how often have you been bothered by any of the following problems? 1. Little interest or pleasure in doing things: not at all 2. Feeling down, depressed, or hopeless: not at all 3. Trouble falling or staying asleep, or sleeping too much: not at all 4. Feeling tired or having little energy: not at all 5. Poor appetite or overeating: not at all 6. Feeling bad about yourself - or that you are a failure or have let yourself or your family down: not at all 7. Trouble concentrating on things, such as reading the newspaper or watching television: not at all 8. Moving or speaking so slowly that other people could have noticed. Or the opposite - being so fidgety or restless that you have been moving around a lot more than usual: not at all 9. Thoughts that you would be better off or of hurting yourself in some way: not at all Total score: 0 Depression Screening Interpretation: Negative Depression Screening Done: Yes Source: Developed by Drs. Rajeev Adams, Sammy Childs and colleagues, with an educational jaimie from [employer]. Thrive Questionnaire Date Thrive assessed: 01/31/24 AUDIT C Alcohol Use Questionnaire (AUDIT-C) 1. How often do you have a drink containing alcohol?: Monthly or less 2. How many drinks containing alcohol do you have on a typical day when you are drinking?: 1 or 2 3. How often do you have six or more drinks on one occasion?: Never Total Score: 1 Score Reviewed/Action Taken: No TONNY-7 AMB Questionnaire TONNY-7 Date TONNY - 7 assessed: 09/11/23 Source: Developed by Drs. Rajeev Adams, Sammy Childs and colleagues, with an educational jaimie from [employer]. Physical exam (Primary Care) Vital Signs: Last Vital Signs Pulse 97 06/24/24 15:58 BP 140/88 H 06/24/24 15:58 Pulse Ox 99 06/24/24 15:58 Oxygen Delivery Method Room Air 06/24/24 15:58 BMI result Body Mass Index 41.1 Tobacco/Smoking Status: Tobacco use Status Tobacco use date assessed 01/31/24 06/24/24 15:59 Patient Tobacco Use Status Never used Tobacco 06/24/24 15:59 Tobacco use type Cigarette 06/24/24 15:59 e-Cigarette/Vaping Use Never Used 06/24/24 15:59 PHQ-9: PHQ-9 Score PHQ-9: Total score 0 06/24/24 16:11 Depression Screening Interpretation: Negative Thrive Assessment: Date of Thrive Assessment Date Thrive assessed 01/31/24 06/24/24 15:59 Const General: alert; No acute distress Eyes Conjunctivae: conjunctivae normal Resp Auscultation: clear to auscultation bilaterally Cardio Rate: regular rate Rhythm: regular rhythm GI Inspection: Yes normal to inspection Extrem General: Yes normal to inspection and No edema Results AMB Hemoglobin A1c AMB Hemoglobin A1c 7.0 % Last Edit by Sendy Cardoso CMA on 06/24/24 16:17 Results Reviewed Results Reviewed: Laboratory Last Values Hgb A1c (Clinic) 7.0 % (4.0-6.0) H 06/24/24 16:16 Coding Level of Care Code Est Pt Level 4 (56814) Complex EM visit Add On G2211 Diagnoses Type 2 diabetes mellitus with hyperglycemia, without long-term current use of insulin E11.65 Diabetes mellitus intermediate teacher insulin use: without intermediate teacher use Essential hypertension I10 Hypertension type: essential hypertension Hypercholesterolemia E78.00 Gastroesophageal reflux disease without esophagitis K21.9 Esophagitis presence: without esophagitis Class 3 severe obesity due to excess calories with serious comorbidity and body mass index (BMI) of 40.0 to 44.9 in adult E66.01; Z68.41 Obesity type: due to excess calories Obesity classification: adult class 3 (BMI >= 40) Serious obesity comorbidity presence: with serious comorbidity Body mass index: BMI 40.0-44.9 Obstructive sleep apnea G47.33 Assessment & Plan Assessment & Plan (1) Type 2 diabetes mellitus with hyperglycemia: Comment: Dr. Ortez Code(s): E11.65 - Type 2 diabetes mellitus with hyperglycemia Category: Medical Qualifiers: Diabetes mellitus intermediate teacher insulin use: without fci use Qualified Code(s): E11.65 - Type 2 diabetes mellitus with hyperglycemia Plan: Decrease the amount of carbohydrate intake, pasta, bread, rice and potatoes are all sugar and that is aside from all the sweet stuff, remember that fruits are good but they are Sweet also. Hemoglobin A1c goal of less than 6.5. Patient on metformin 500 mg twice a day Jardiance 10 mg once a day (2) Hypertension: Code(s): I10 - Essential (primary) hypertension Category: Medical Qualifiers: Hypertension type: essential hypertension Qualified Code(s): I10 - Essential (primary) hypertension Plan: Blood pressure on irbesartan 75 mg once a day metoprolol 50 mg once a day (3) Hypercholesterolemia: Code(s): E78.00 - Pure hypercholesterolemia, unspecified Category: Medical Plan: Avoid fried foods, chicken skin, eggs, butter margarine, pastries and meat. Be it pork or beef they have a lot of cholesterol on pravastatin 10 mg once a day patient needs blood work (4) GERD (gastroesophageal reflux disease): Code(s): K21.9 - Gastro-esophageal reflux disease without esophagitis Category: Medical Qualifiers: Esophagitis presence: without esophagitis Qualified Code(s): K21.9 - Gastro-esophageal reflux disease without esophagitis Plan: Avoid the foods that causes that usually spicy foods, tomato products, juices, coffee, soda and foods that your sensitive to. After eating do not lie down, allow 3-4 hours before in lie down. And keep the head of bed above 30 degrees to avoid the acid from going up. (5) Obesity: Code(s): E66.9 - Obesity, unspecified Category: Medical Qualifiers: Obesity type: due to excess calories Obesity classification: adult class 3 (BMI >= 40) Serious obesity comorbidity presence: with serious comorbidity Body mass index: BMI 40.0-44.9 Qualified Code(s): E66.01 - Morbid (severe) obesity due to excess calories; Z68.41 - Body mass index [BMI]40.0-44.9, adult Plan: Diet and exercise (6) Obstructive sleep apnea: Comment: CPAP use Q night > 4 hours and benefits patient Sleep study October 2022 Code(s): G47.33 - Obstructive sleep apnea (adult) (pediatric) Category: Medical Plan: Continues to use the CPAP more than 4 hours a night and benefits from this. Orders: Orders Complete Blood Count Auto Diff Today E11.65 - Type 2 diabetes mellitus with hyperglycemia Comprehensive Met. Panel Today E11.65 - Type 2 diabetes mellitus with hyperglycemia Thyroid Stimulating Hormone Today E11.65 - Type 2 diabetes mellitus with hyperglycemia Vitamin B12 and Folate Today E11.65 - Type 2 diabetes mellitus with hyperglycemia Creatinine Urine Today E11.65 - Type 2 diabetes mellitus with hyperglycemia Microalbumin, Random (w Creat) Today E11.65 - Type 2 diabetes mellitus with hyperglycemia Hemoglobin A1c Today E11.65 - Type 2 diabetes mellitus with hyperglycemia AMB Hemoglobin A1c Today E11.65 - Type 2 diabetes mellitus with hyperglycemia Free T4 (Free Thyroxine) Today E11.65 - Type 2 diabetes mellitus with hyperglycemia Lipid Panel Today E11.65 - Type 2 diabetes mellitus with hyperglycemia, E78.00 - Pure hypercholesterolemia, unspecified Prostate Specific Antigen Scr Today E11.65 - Type 2 diabetes mellitus with hyperglycemia Medications: Changed From empagliflozin (Jardiance) 10 mg PO DAILY 90 tabs 1RF E11.65 - Type 2 diabetes mellitus with hyperglycemia To empagliflozin 25 mg PO DAILY 30 tabs 3RF E11.65 - Type 2 diabetes mellitus with hyperglycemia
[2024-06-24 16:32] VITALS: BP 110/80
== END 2024-06-24 16:40 | disposition home or self-care (01) ==
LOC: HO.HMCH 15:48
PROVIDERS: PCP Internal Medicine; Visit Provider Internal Medicine
DX: E11.65 Type 2 diabetes mellitus with hyperglycemia (principal); I10 Essential (primary) hypertension; E66.01 Morbid (severe) obesity due to excess calories; Z68.41 Body mass index [BMI] 40.0-44.9, adult; E78.00 Pure hypercholesterolemia, unspecified; K21.9 Gastro-esophageal reflux disease without esophagitis; G47.33 Obstructive sleep apnea (adult) (pediatric)

== ENCOUNTER → 2024-06-24 15:47 | Outpatient (BNVA) | payer OTHER, SELFPAY | PROVIDERS: PCP Internal Medicine; Visit Provider Internal Medicine | DX: E11.65 Type 2 diabetes mellitus with hyperglycemia (principal); I10 Essential (primary) hypertension; E78.00 Pure hypercholesterolemia, unspecified; K21.9 Gastro-esophageal reflux disease without esophagitis; E66.01 Morbid (severe) obesity due to excess calories; Z68.41 Body mass index [BMI] 40.0-44.9, adult; G47.33 Obstructive sleep apnea (adult) (pediatric); Z79.899 Other long term (current) drug therapy | CPT/HCPCS: 83036; 96127 ==

== ENCOUNTER 2024-09-24 09:04 | Day surgery (SDC) | payer OTHER, SELFPAY ==
[2024-09-22 15:08] VITALS: BMI 41.1
--- NOTE | 2024-09-23 09:16 | P.CONAN_ITS ---
Documented by User: Hailey Sheth NP 09/23/24 09:17 HPI - Anesthesia Eval Consult details Narrative: 64yo M for Colonoscopy Anesthesia Pre-Procedure Meds Is the patient on any of the following meds?: GLP1/DPP4 and SGLT2 Inhib PMFSH Active Problems Active Problems: All Active Problems Supraclavicular fossa fullness (Acute) Sinusitis (Acute) Venous stasis dermatitis (Acute) Right hamstring muscle strain (Acute) Allergy desensitization therapy (Acute) Knee pain, right (Acute) COVID-19 virus infection (Acute) UTI (urinary tract infection) (Acute) Left groin pain (Acute) Allergy to mold (Acute) Annual physical exam (Acute) Tinea pedis (Acute) Obstructive sleep apnea (Acute) Obesity (Acute) GERD (gastroesophageal reflux disease) (Acute) Hypercholesterolemia (Acute) Type 2 diabetes mellitus with hyperglycemia (Acute) Hypertension (Acute) Past Medical History Medical History Neck fullness Tinea pedis Dysuria Right inguinal hernia Renal calculi Iron deficiency anemia Obstructive sleep apnea Obesity GERD (gastroesophageal reflux disease) Anxiety Insomnia Hypercholesterolemia Type 2 diabetes mellitus with hyperglycemia Vitamin D deficiency Allergic rhinitis Hypertension Family History Family History Father Hypertension CVD (cardiovascular disease) Myocardial infarction Mother Hypertension CVD (cardiovascular disease) CAD (coronary artery disease) Sister Myocardial infarction Brother Alcohol abuse CVA (cerebral vascular accident) Surgical History Surgical History Hx of cystoscopy History of tonsillectomy and adenoidectomy History of ear surgery History of inguinal hernia repair Social History Social History Housing: House Alcohol intake: current Alcohol intake frequency: holidays/special occasions only Alcohol type: beer Patient Tobacco Use Status: Never used Tobacco Tobacco use type: Cigarette e-Cigarette/Vaping Use: Never Used Second Hand Smoke Exposure: No Use of substances other than those prescribed or required for medical reasons: No Have you been hit, kicked, punched, or otherwise hurt by someone within the past year? If so, by whom?: No Are you DNR?: No Advance Directives: No Advance Directives Information Provided: Yes Recently lost weight without trying: No service: No Current occupational status: employed Cognitive needs: No Hearing needs: Yes Vision needs: No Meds Allergies Allergy/AdvReac Type Severity Reaction Status Date / Time lisinopril [LISINOPRIL] Allergy Severe ANGIOEDEMA, Verified 06/24/24 15:58 COUGH mold Allergy Severe runnig Verified 06/24/24 15:58 nose / nasal simvastatin [SIMVASTATIN] Allergy Intermediate SWOLLEN Verified 06/24/24 15:58 JOINTS Home Medications ?Medication ?Instructions ?Recorded ?Confirmed ?Last Taken ?Type cholecalciferol (vitamin D3) 25 25 mcg PO DAILY 10/11/20 09/22/24 Unknown History mcg (1,000 unit) capsule cyanocobalamin (vitamin B-12) 1,000 mcg PO DAILY 10/11/20 09/22/24 Unknown History 1,000 mcg capsule fexofenadine 180 mg tablet 180 mg PO DAILY 11/04/21 09/22/24 Unknown History ([facility] Allergy) Exam Height,Weight and Vital Signs: Height 5 ft 2 in Weight 102.058 kg Assessment and Plan Assessment Anesthesia Assessment: Chart Reviewed Documented by User: Julianna Damico MD 09/24/24 11:07 PMFSH Active Problems Active Problems: All Active Problems Supraclavicular fossa fullness (Acute) Sinusitis (Acute) Venous stasis dermatitis (Acute) Right hamstring muscle strain (Acute) Allergy desensitization therapy (Acute) Knee pain, right (Acute) COVID-19 virus infection (Acute) UTI (urinary tract infection) (Acute) Left groin pain (Acute) Allergy to mold (Acute) Annual physical exam (Acute) Tinea pedis (Acute) Obstructive sleep apnea (Acute). Uses CPAP machine Obesity (Acute). BMI 41.5 GERD (gastroesophageal reflux disease) (Acute) Hypercholesterolemia (Acute) Type 2 diabetes mellitus with hyperglycemia (Acute) Hypertension (Acute) Past Medical History Medical History Neck fullness Tinea pedis Dysuria Right inguinal hernia Renal calculi Iron deficiency anemia Obstructive sleep apnea Obesity GERD (gastroesophageal reflux disease) Anxiety Insomnia Hypercholesterolemia Type 2 diabetes mellitus with hyperglycemia Vitamin D deficiency Allergic rhinitis Hypertension Family History Family History Father Hypertension CVD (cardiovascular disease) Myocardial infarction Mother Hypertension CVD (cardiovascular disease) CAD (coronary artery disease) Sister Myocardial infarction Brother Alcohol abuse CVA (cerebral vascular accident) Family history of problems with anesthesia: No Surgical History Surgical History Hx of cystoscopy History of tonsillectomy and adenoidectomy History of ear surgery History of inguinal hernia repair History of Problems with Anesthesia: No Social History Social History Housing: House Alcohol intake: current Alcohol intake frequency: holidays/special occasions o nly Alcohol type: beer Patient Tobacco Use Status: Never used Tobacco Tobacco use type: Cigarette e-Cigarette/Vaping Use: Never Used Second Hand Smoke Exposure: No Use of substances other than those prescribed or required for medical reasons: No Have you been hit, kicked, punched, or otherwise hurt by someone within the past year? If so, by whom?: No Are you DNR?: No Advance Directives: No Advance Directives Information Provided: Yes Recently lost weight without trying: No service: No Current occupational status: employed Cognitive needs: No Hearing needs: Yes Vision needs: No Meds Allergies Allergy/AdvReac Type Severity Reaction Status Date / Time lisinopril [LISINOPRIL] Allergy Severe ANGIOEDEMA, Verified 06/24/24 15:58 COUGH mold Allergy Severe runnig Verified 06/24/24 15:58 nose / nasal simvastatin [SIMVASTATIN] Allergy Intermediate SWOLLEN Verified 06/24/24 15:58 JOINTS Home Medications ?Medication ?Instructions ?Recorded ?Confirmed ?Last Taken ?Type cholecalciferol (vitamin D3) 25 25 mcg PO DAILY 10/11/20 09/22/24 Unknown History mcg (1,000 unit) capsule cyanocobalamin (vitamin B-12) 1,000 mcg PO DAILY 10/11/20 09/22/24 Unknown History 1,000 mcg capsule fexofenadine 180 mg tablet 180 mg PO DAILY 11/04/21 09/22/24 Unknown History ([facility]ulu Allergy) Exam Height,Weight and Vital Signs: Height 5 ft 2 in Weight 102.058 kg Vital Signs Temp Pulse Resp BP Pulse Ox O2 Del Method 09/24/24 09:17 98.2 F 96 16 124/72 100 Room Air Pertinent Lab Results Pertinent Lab Results: Lab Results 09/24/24 Range/Units 09:29 POC Glucose 137 H (60-115) mg/dL Airway Mallampati Class: II TM Dist: >3cm Neck ROM: Full Loose/Missing/Broken Teeth: No (Gaps in teeth but patient states no missing teeth. Denies broken or loose teeth) Heart: RRR Lungs: CTAB Assessment and Plan Assessment Anesthesia Assessment: Anesthesia Plan Discussed and Chart Reviewed Final Anesthetic Review Family History of Problems with Anesthesia: No History of Problems with Anesthesia: No NPO: Yes ASA Class: III Final Preanesthetic Review: No Changes in Pt Med Stat, Meds/Allgs Chart Reviewed, Consent Obtained/Reviewed and Anes Risks/Benef Reviewed Patient Risk: Intermediate Procedure Risk: Low Assessment/Block/Sedation in SS: Assess/Block/Sedation-SS Anesthetic Plan Anesthetic Plan: TIVA Disposition: Standard PACU
[2024-09-24 09:17] VITALS: BP 124/72; PULSE 96; RESP 16; TEMP 36.8; O2SAT 100; BMI 41.5
[2024-09-24 09:33] LABS: Glucose, Whole Blood 137 mg/dL (60-115)
[2024-09-24] MEDS: Lactated Ringers 1,000 ML 100 ML IVCONT (09:36)
--- NOTE | 2024-09-24 10:27 | MHC.SHP ---
Pre-Procedural Eval Section A - 24 Hr Update-Section A only Date of Service: 09/24/24 Section B - Complete if H&P > 30 days Chief Complaint: Encounter for screening for malignant neoplasm of Relevant Family History (Specify if Yes): No Relevant Social History: None Present Medications: see Short Stay Collaborative assessment Medical History: Significant History (Neck fullness Tinea pedis Dysuria Right inguinal hernia Renal calculi Iron deficiency anemia Obstructive sleep apnea Obesity GERD (gastroesophageal reflux disease) Anxiety Insomnia Hypercholesterolemia Type 2 diabetes mellitus with hyperglycemia Vitamin D deficiency Allergic rhinitis Hypertension) History of Previous Operations: Relevant previous surgery/procedure and date(s) (Hx of cystoscopy History of tonsillectomy and adenoidectomy History of ear surgery History of inguinal hernia repair) Allergies: Allergies Allergy/AdvReac Type Severity Reaction Status Date / Time lisinopril [LISINOPRIL] Allergy Severe ANGIOEDEMA, Verified 06/24/24 15:58 COUGH mold Allergy Severe runnig Verified 06/24/24 15:58 nose / nasal simvastatin [SIMVASTATIN] Allergy Intermediate SWOLLEN Verified 06/24/24 15:58 JOINTS Review of Systems Sugical H&P ROS: Negative: Constitution, Cardiovascular, Respiratory, Neurological, Psychiatric, Hem-Onc, Allergic/Immunologic, Gastrointestinal, Genitourinary, Musculoskeletal, Integumentary, Endocrine and Eyes/Ears/Nose/Throat Exam Surgical H&P Exam: Normal: HEENT, Normal: Heart, Normal: Lungs, Normal: Extremities, Normal: Abdomen, Normal: Skin and Normal: Neurological Plan Diagnosis/Plan: Unchanged I have reviewed the history and physical and performed a pertinent physical examination on my patient. No changes have occurred unless specified. Time Spent With Patient Time: Total time managing care of this patient today ____ minutes.
--- NOTE | 2024-09-24 11:13 | P.OPN-COLO_ITS ---
Colonoscopy Operative Note Operative Note Date of Service: 09/24/24 Narrative: Operative Information Procedure Description: Colonoscopy Indication: screening Anesthesia: MAC COLONOSCOPY Instrument: Olympus variable stiffness pediatric scope 190L Colonoscopy Monitoring: Vital signs and clinical assessment, continuous EKG monitoring, Pulse oximetry, Carbon Dioxide monitoring and blood pressure monitoring were done throughout the procedure. Colon withdrawal time was 12 minutes. Procedure: The patient was placed in the left lateral decubitis position and pre-procedure medications were administered. After a digital rectal examination of the ano-rectum, the video colonoscope was inserted into the rectum and advanced through the colon to the cecum/TI. The colonoscope was slowly withdrawn in a retrograde panoramic fashion and the colon mucosa was carefully examined including a retroflexed view of the rectum. Findings and interventions are described below. Procedure Difficulty: moderate Findings: Terminal Ileum-normal Cecum:normal over ileocecal valve slightly raised tissue could be just prolapsed TI, biopsy excised with cold forceps Ascending Colon: normal Transverse Colon -normal Descending Colon:normal Sigmoid Colon: 8-9 mm sessile polyp removed with cold snare Rectum: Retroflexion with small internal hemorrhoids seen, grade I Anorectum - normal Intervention: cold snare, cold forceps Colon preparation: [place] Bowel Preparation Scale Right colon; 2 Transverse colon: 2 Left colon; 2 (0 = Unprepared colon segment with mucosa not seen due to solid stool that cannot be cleared. 1 = Portion of mucosa of the colon segment seen, but other areas of the colon segment not well seen due to staining, residual stool and/or opaque liquid. 2 = Minor amount of residual staining, small fragments of stool and/or opaque liquid, but mucosa of colon segment seen well. 3 = Entire mucosa of colon segment seen well with no residual staining, small fragments of stool or opaque liquid) Impression and Post Procedure Diagnosis: colon polyps internal hemorrhoids Plan: High fiber diet leaflet Avoid straining at stool, epsom salts and sitz bath, anusol supps or cream Repeat Colonoscopy in 5 years due to few areas of fair prep and adenomatous appearing polyp in sigmoid by pit markings or earlier if clinically indicated Above findings were reviewed with the patient and relevant handouts were provided if indicated.
[2024-09-24 11:21] VITALS: BP 97/55; PULSE 70; RESP 18; TEMP 36.7; O2SAT 96
[2024-09-24 11:36] VITALS: BP 131/67; PULSE 76; RESP 16; TEMP 36.8; O2SAT 97
== END 2024-09-24 12:00 | disposition home or self-care (01) ==
PROVIDERS: PCP Internal Medicine; Visit Provider Internal Medicine Gastroenterology
PROC: 0DJD8ZZ Inspection of Lower Intestinal Tract, Via Natural or Artificial Opening Endoscopic (ICD-10-PCS; CPT 45378; principal; 2024-09-24 12:10)
DX: Z12.11 Encounter for screening for malignant neoplasm of colon (principal); Z86.0101 Personal history of adenomatous and serrated colon polyps; D12.5 Benign neoplasm of sigmoid colon; K63.5 Polyp of colon; K64.0 First degree hemorrhoids; K59.00 Constipation, unspecified; K21.9 Gastro-esophageal reflux disease without esophagitis; I10 Essential (primary) hypertension; E78.00 Pure hypercholesterolemia, unspecified; D50.9 Iron deficiency anemia, unspecified; E55.9 Vitamin D deficiency, unspecified; J30.9 Allergic rhinitis, unspecified; E11.65 Type 2 diabetes mellitus with hyperglycemia; N20.0 Calculus of kidney; R30.0 Dysuria; E66.9 Obesity, unspecified; Z68.41 Body mass index [BMI] 40.0-44.9, adult; G47.33 Obstructive sleep apnea (adult) (pediatric); Z79.84 Long term (current) use of oral hypoglycemic drugs; Z79.899 Other long term (current) drug therapy; Z99.89 Dependence on other enabling machines and devices; Z88.8 Allergy status to other drugs, medicaments and biological substances
CPT/HCPCS: 45385; 45380; 82947; 88305; J2003; J2704

== ENCOUNTER → 2024-09-24 09:04 | Outpatient (BNV) | payer OTHER, SELFPAY | PROVIDERS: PCP Internal Medicine; Visit Provider Internal Medicine Gastroenterology | DX: Z12.11 Encounter for screening for malignant neoplasm of colon (principal); D12.5 Benign neoplasm of sigmoid colon; K63.5 Polyp of colon; K64.0 First degree hemorrhoids | CPT/HCPCS: 45380; 45385 ==

== ENCOUNTER 2024-09-30 06:07 | Outpatient (REF) | payer OTHER, SELFPAY ==
[2024-09-30 06:32] LABS: MANUAL DIFF FLAG NO
[2024-09-30 07:29] LABS: Basophils Absolute Auto 0.2 X10*3/uL (0.0-0.2); Basophils Percent Auto 1.8 % (0-2); Eosinophils Absolute Auto 0.1 X10*3/uL (0.0-0.4); Eosinophils Percent Auto 0.9 % (0-4); Hematocrit 50.6 % (42.0-52.0); Hemoglobin 16.3 g/dl (14.0-18.0); Imm Gran Abs Auto 0.02 X10*3/uL (0.00-0.03); Imm Gran Pct Auto 0.2 % (0.0-0.4); Lymphocytes Absolute Auto 2.8 X10*3/uL (1.2-4.9); Lymphocytes Percent Auto 31.7 % (20-40); Mean Corpuscular HGB Conc 32.2 g/dl (31.0-36.0); Mean Corpuscular Hemoglobin 27.2 pg (27.0-33.0); Mean Corpuscular Volume 84.3 fL (80.0-98.0); Mean Platelet Volume 11.2 fL (9.4-12.4); Monocytes Absolute Auto 0.5 X10*3/uL (0.1-1.2); Monocytes Percent Auto 5.4 % (2-11); Neutrophils Absolute Auto 5.2 x10*3/uL (2.0-8.3); Platelet Count 169 X10*3/uL (160-400); Red Cell Distribution Width 14.2 % (11.0-16.0); White Blood Count 8.7 X10*3/uL (4.8-10.8)
[2024-09-30 07:38] LABS: Estimated Average Glucose 148 mg/dL; Hemoglobin A1c % 6.8 % (<6.0); Total Hemoglobin (HGBA1C) 4082.4509 umol/L
[2024-09-30 08:05] LABS: Alanine Aminotransferase 38 U/L (0-40); Albumin Level 4.3 g/dL (3.5-5.0); Alkaline Phosphatase 60 U/L (39-117); Anion Gap 12 (12-20); Aspartate Amino Transferase 34 U/L (5-37); Bilirubin Total 1.1 mg/dL (0.0-1.0); Blood Urea Nitrogen 20 mg/dL (9-16); Calcium 9.6 mg/dL (8.4-10.2); Carbon Dioxide 24 mmol/L (22-29); Chloride 107 mmol/L (96-108); Cholesterol 141 mg/dL (<200); Estimated Glomerular Filt Rate > 60; Glucose Random 113 mg/dL (60-115); HDL Cholesterol 39 mg/dL (>40); LDL Cholesterol Calculated 83 mg/dL (<100); Potassium 4.4 mmol/L (3.3-5.1); Sodium 139 mmol/L (135-145); Total Protein 7.5 g/dL (6.5-8.0); Triglycerides 99 mg/dL (<150)
[2024-09-30 08:23] LABS: Free T4 (Free Thyroxine) 0.93 ng/dL (0.71-1.85); Thyroid Stimulating Hormone 1.72 uIU/mL (0.32-4.0)
[2024-09-30 08:26] LABS: Folate 10.1 ng/mL (> or = 4.0); Prostate Specific Antigen Scr 2.86 ng/mL (<0.05-4.0); Vitamin B12 631 pg/mL (200-900)
[2024-09-30 09:10] LABS: Creatinine Urine 79.03 mg/dL; Microalbum/Creatinine Ratio Ur 11.3 ug/mg cr (<30)
== END 2024-09-30 06:08 | disposition home or self-care (01) ==
LOC: HO.LAB 06:07
PROVIDERS: PCP Internal Medicine; Visit Provider Internal Medicine
DX: E11.65 Type 2 diabetes mellitus with hyperglycemia (principal); E78.00 Pure hypercholesterolemia, unspecified; Z12.5 Encounter for screening for malignant neoplasm of prostate
CPT/HCPCS: 36415; 80053; 80061; 82043; 82570; 82607; 82746; 83036; 84153; 84439; 84443; 85025

== ENCOUNTER 2024-10-03 15:29 | Outpatient (AMB) | payer OTHER, SELFPAY ==
[2024-10-03 15:39] VITALS: BP 114/68; PULSE 67; O2SAT 98; BMI 41.7
--- NOTE | 2024-10-03 15:39 | MHC.PC.OV ---
Vital Signs 10/03/24 15:39 Height 5 ft 2 in Weight 228 lb BMI 41.7 BP 114/68 Blood Pressure Location Lt brachial Position Sitting Pulse 67 Pulse Source Pulse Oximeter Pulse Oximetry (%) 98 Oxygen Delivery Method Room Air Intake Visit Reasons: PE Allergies lisinopril [LISINOPRIL] Allergy (Severe, Verified 10/03/24 15:39) ANGIOEDEMA, COUGH mold Allergy (Severe, Verified 10/03/24 15:39) runnig nose / nasal simvastatin [SIMVASTATIN] Allergy (Intermediate, Verified 10/03/24 15:39) SWOLLEN JOINTS Medication List - Last Reconciled 10/03/24 by Jeremy Willis MD [AUTO PAP 6-16 cm H2O humidified AIR As directed] blood sugar diagnostic (FreeStyle Lite Strips) As directed to test BS 3 times per day blood-glucose meter (FreeStyle Lite Meter kit) As directed to test BS 3 times per day cholecalciferol (vitamin D3) 25 mcg PO DAILY clotrimazole 1% 1 appl topical BID 4 weeks cyanocobalamin (vitamin B-12) 1,000 mcg PO DAILY empagliflozin 25 mg PO DAILY fexofenadine (Mulu Allergy) 180 mg PO DAILY hydrocortisone 2.5% (Proctosol HC) 1 appl [place] BID-QID PRN ipratropium bromide 2 sprays intranasal BID irbesartan 75 mg PO DAILY lancets (FreeStyle Lancets) As directed to test BS 3 times per day metformin 500 mg PO BID metoprolol succinate ER 50 mg PO DAILY 90 days miconazole nitrate 2% (Zeasorb AF) 1 appl topical BID omeprazole 40 mg PO DAILY pravastatin 10 mg PO DAILY Tobacco use date assessed: 10/03/24 Fall risk assessment: No Falls in past year Last assessed Fall Risk: 10/03/24 Dental Screening Dental Screen Date: 10/03/24 Did you have a dental visit in the last 12 months?: Yes Did you have a dental problem in the last 6 months where you did not have access to dental care?: No Was dental information given to patient?: Patient has dentist HPI PE HPI Details The patient is a 64-year-old male presenting for follow-up on multiple chronic conditions including type 2 diabetes mellitus, essential hypertension, hyperlipidemia, and obstructive sleep apnea. He is also reviewing recent medical evaluations, including a colonoscopy that revealed a benign tubular adenoma. The patient has a history of venous stasis dermatitis and underwent recent blood work, which showed normal renal function, electrolytes, blood count, and a liver function profile; blood glucose was 113 mg/dL with a hemoglobin A1c of 6.8%, indicating slightly above target glycemic control for his age, yet below the broader goal of under 7.0% for individuals above 65. He maintains diligence with his treatment regimen using Jardiance and metformin for diabetes management, and continues with medications including pravastatin for cholesterol management and blood pressure medications comprising ibuprofen 75 mg daily and metoprolol 50 mg daily. Recently, the patient underwent a colonoscopy confirming a tubular adenoma, now placed on a five-year surveillance interval due to benign pathology. He adheres to lifestyle modifications, including dietary changes and the use of continuous positive airway pressure (CPAP) therapy for sleep apnea. He experiences intermittent urinary hesitancy, with a history of prostate enlargement. Dietary habits include cereal with milk, minimal snacks post-evening, and hydration primarily with water, with occasional diet cola consumption. Anticipatory guidance included suggestions on maintaining adequate hydration, incorporating exercise as weather permits, and continued adherence to allergy notifications for lisinopril and simvastatin due to associated adverse reactions. [facility] Medical History (Updated 10/03/24 @ 15:54 by Jeremy Willis MD) Neck fullness Tinea pedis Dysuria Right inguinal hernia Renal calculi Iron deficiency anemia Obstructive sleep apnea Obesity GERD (gastroesophageal reflux disease) Anxiety Insomnia Hypercholesterolemia Type 2 diabetes mellitus with hyperglycemia Vitamin D deficiency Allergic rhinitis Hypertension Surgical History Hx of cystoscopy History of tonsillectomy and adenoidectomy History of ear surgery History of inguinal hernia repair Family History Father Hypertension CVD (cardiovascular disease) Myocardial infarction Mother Hypertension CVD (cardiovascular disease) CAD (coronary artery disease) Sister Myocardial infarction Brother Alcohol abuse CVA (cerebral vascular accident) Social History (Updated 10/03/24 @ 15:59 by Jeremy Willis MD) Housing: House Alcohol intake: current Alcohol intake frequency: holidays/special occasions only Alcohol type: beer Comment: once Q4 months 2 drinks Patient Tobacco Use Status: Never used Tobacco Tobacco use type: Cigarette e-Cigarette/Vaping Use: Never Used Second Hand Smoke Exposure: No service: No Current occupational status: employed Cognitive needs: No Hearing needs: Yes Vision needs: No Questionnaire PHQ-9 Over the last 2 weeks, how often have you been bothered by any of the following problems? 1. Little interest or pleasure in doing things: not at all 2. Feeling down, depressed, or hopeless: not at all 3. Trouble falling or staying asleep, or sleeping too much: not at all 4. Feeling tired or having little energy: not at all 5. Poor appetite or overeating: not at all 6. Feeling bad about yourself - or that you are a failure or have let yourself or your family down: not at all 7. Trouble concentrating on things, such as reading the newspaper or watching television: not at all 8. Moving or speaking so slowly that other people could have noticed. Or the opposite - being so fidgety or restless that you have been moving around a lot more than usual: not at all 9. Thoughts that you would be better off or of hurting yourself in some way: not at all Total score: 0 Source: Developed by Drs. Rajeev Adams, Macey Snow, Sammy Dejesus and colleagues, with an educational jaimie from [employer]. Thrive Questionnaire Date Thrive assessed: 10/03/24 I am a: Patient What is your living situation today?: I have a steady place to live Within the past 12 months, did the food you bought not last and you didn't have the money to get more?: Never true Within the past 12 months, did you worry whether your food would run out before you got money to buy more?: Never true Do you have trouble paying for medicines?: No Do you have trouble getting transportation to medical appointments?: No Do you have trouble paying your heating and electricity bill?: No Do you have trouble taking care of your child, family member or friend?: No Do you have trouble with day-to-day activities such as bathing, preparing meals, shopping, managing finances, etc.?: No Are you currently unemployed and looking for a job?: No Are you interested in more education?: No Please select the resources that you would like help with: None Currently or been in a relationship where the following occur: No concerns reported THRIVE Score: 0 AUDIT C Alcohol Use Questionnaire (AUDIT-C) 1. How often do you have a drink containing alcohol?: Never Total Score: 0 TONNY-7 AMB Questionnaire TONNY-7 Date TONNY - 7 assessed: 10/03/24 Feeling nervous, anxious, or on edge: 0 = Not at all Not being able to stop or control worryin = Not at all Worrying too much about different things: 0 = Not at all Trouble relaxin = Not at all Being so restless that it is hard to sit still: 0 = Not at all Becoming easily annoyed or irritable: 0 = Not at all Feeling afraid as if something awful might happen: 0 = Not at all Total TONNY-7 score (0-4 normal; 5-9 mild; 10-14 moderate; 15-21 severe): 0 Source: Developed by Drs. Rajeev Adams, Macye Snow, Sammy Dejesus and colleagues, with an educational jaimie from [employer]. Review of Systems Const Denies poor appetite and Denies weakness Eyes Denies no additional complaints ENT Reports Normal hearing present, Denies dizziness, Denies nasal congestion, Denies tinnitus and Denies sore throat Card Denies chest pain, Denies syncope, Denies rapid heart rate and Denies dyspnea Resp Denies cough and Denies dyspnea GI Denies change in stool character, Reports constipation, Denies diarrhea, Denies nausea and Denies vomiting Denies dysuria and Denies urinary frequency Neuro Reports Normal hearing present, Denies confusion, Denies dizziness, Denies syncope and Denies weakness Psych Denies confusion Physical exam (Primary Care) Vital Signs: Last Vital Signs Pulse 67 10/03/24 15:39 BP 114/68 10/03/24 15:39 Pulse Ox 98 10/03/24 15:39 Oxygen Delivery Method Room Air 10/03/24 15:39 BMI result Body Mass Index 41.7 Tobacco/Smoking Status: Tobacco use Status Tobacco use date assessed 10/03/24 10/03/24 15:46 Patient Tobacco Use Status Never used Tobacco 10/03/24 15:59 Tobacco use type Cigarette 10/03/24 15:59 e-Cigarette/Vaping Use Never Used 10/03/24 15:59 PHQ-9: PHQ-9 Score PHQ-9: Total score 0 10/03/24 15:46 Thrive Assessment: Date of Thrive Assessment Date Thrive assessed 10/03/24 10/03/24 15:46 Currently or been in a relationship where the following occur: No concerns reported Const General: alert; No acute distress or confusion Orientation/consciousness: No confusion HENMT Head: Yes normocephalic Ears: external ears normal and TM's normal bilaterally Face and sinus: Yes normal facial exam Mouth: moist mucous membranes Throat: Yes tonsils normal Eyes Conjunctivae: conjunctivae normal Pupils: Equal, round and reactive pupils present and Pupil accommodation reflex normal Direct Ophthalmoscopy: normal light reflex Neck Neck: No lymphadenopathy Thyroid: Thyroid normal Chest Chest palpation & inspection: normal inspection of the chest Resp Effort & Inspection: normal respiratory effort and no audible wheezes Auscultation: clear to auscultation bilaterally Cardio Rate: regular rate Rhythm: regular rhythm Peripheral pulses: radial pulses present and dorsalis pedis present GI Other: colon test just done pedal pulse and pin prick good Inspection: Yes normal to inspection Palpation (GI): no masses Auscultation: normal bowel sounds and normoactive bowel sounds Male General Exam: Yes normal external exam Skin General skin exam: no rashes or lesions noted Rashes: no rashes Neuro General: No confusion Cranial nerves: Yes Equal, round and reactive pupils present and Yes Normal hearing present Cognition (Neuro): normal cognition Gait exam (Neuro): Normal gait present Motor exam (neuro): 5/5 motor strength present throughout Deep tendon reflexes (DTR's): Right brachioradialis reflex intensity grade: 2+, Left brachioradialis reflex intensity grade: 2+, Right patellar reflex intensity grade: 2+ and Left patellar reflex intensity grade: 2+ Extrem General: Yes normal to inspection and No edema Coding Level of Care Code Est Pt Prev Care >65y(35009) Diagnoses Type 2 diabetes mellitus with hyperglycemia, without long-term current use of insulin E11.65 Diabetes mellitus longterm insulin use: without longterm use Essential hypertension I10 Hypertension type: essential hypertension Hypercholesterolemia E78.00 Gastroesophageal reflux disease without esophagitis K21.9 Esophagitis presence: without esophagitis Class 3 severe obesity due to excess calories with serious comorbidity and body mass index (BMI) of 40.0 to 44.9 in adult E66.01; Z68.41 Body mass index: BMI 40.0-44.9 Obesity classification: adult class 3 (BMI >= 40) Obesity type: due to excess calories Serious obesity comorbidity presence: with serious comorbidity Obstructive sleep apnea G47.33 Venous stasis dermatitis I87.2 Assessment & Plan Assessment & Plan (1) Type 2 diabetes mellitus with hyperglycemia: Comment: Dr. Ortez Code(s): E11.65 - Type 2 diabetes mellitus with hyperglycemia Category: Medical Qualifiers: Diabetes mellitus superintendent container terminal insulin use: without superintendent container terminal use Qualified Code(s): E11.65 - Type 2 diabetes mellitus with hyperglycemia Plan: Decrease the amount of carbohydrate intake, pasta, bread, rice and potatoes are all sugar and that is aside from all the sweet stuff, remember that fruits are good but they are Sweet also. Hemoglobin A1c goal of less than 6.5. Patient on Jardiance 25 mg once a day metformin 500 mg twice a day (2) Hypertension: Code(s): I10 - Essential (primary) hypertension Category: Medical Qualifiers: Hypertension type: essential hypertension Qualified Code(s): I10 - Essential (primary) hypertension Plan: Continue with blood pressure medication. Decrease salt intake and exercise continue with irbesartan 75 mg once a day metoprolol 50 mg once a day. (3) Hypercholesterolemia: Code(s): E78.00 - Pure hypercholesterolemia, unspecified Category: Medical Plan: Avoid fried foods, chicken skin, eggs, butter margarine, pastries and meat. Be it pork or beef they have a lot of cholesterol on pravastatin LDL goal of less than 100 and triglyceride of less than 150. (4) GERD (gastroesophageal reflux disease): Code(s): K21.9 - Gastro-esophageal reflux disease without esophagitis Category: Medical Qualifiers: Esophagitis presence: without esophagitis Qualified Code(s): K21.9 - Gastro-esophageal reflux disease without esophagitis Plan: Avoid the foods that causes that usually spicy foods, tomato products, juices, coffee, soda and foods that your sensitive to. After eating do not lie down, allow 3-4 hours before in lie down. And keep the head of bed above 30 degrees to avoid the acid from going up. (5) Obesity: Code(s): E66.9 - Obesity, unspecified Category: Medical Qualifiers: Body mass index: BMI 40.0-44.9 Obesity classification: adult class 3 (BMI >= 40) Obesity type: due to excess calories Serious obesity comorbidity presence: with serious comorbidity Qualified Code(s): E66.01 - Morbid (severe) obesity due to excess calories; Z68.41 - Body mass index [BMI]40.0-44.9, adult Plan: Diet and exercise (6) Obstructive sleep apnea: Comment: CPAP use Q night > 4 hours and benefits patient Sleep study October 2022 Code(s): G47.33 - Obstructive sleep apnea (adult) (pediatric) Category: Medical Plan: Continue to use the CPAP more than 4 hours a night and benefits from this (7) Venous stasis dermatitis: Comment: Versus eczema Code(s): I87.2 - Venous insufficiency (chronic) (peripheral) Category: Medical Plan: When sitting down elevate the legs, exercise, and support stockings Plan 1. 5%: - Maintain essential hypertension management with ibuprofen 75 mg daily and metoprolol 50 mg daily. - Continue hyperlipidemia management with pravastatin aiming for LDL cholesterol less than 100 mg/dL and triglycerides less than 150 mg/dL. - Ongoing GERD management with lifestyle modifications focused on diet and exercise. - Advise nightly usage of CPAP for obstructive sleep apnea. - Follow PVD management plan. - Provide education on flu season precautions, emphasizing vaccinations, masking, and hand hygiene. - Monitor urinary patterns due to prostate enlargement; increase fluid intake to support overall renal function. - Follow up post-polypectomy with a five-year colonoscopy surveillance based on benign tubular adenoma pathology. - Note allergies to lisinopril and simvastatin; ensure management plans account for these allergies. - Encourage regular follow-up appointments to adjust management plans as needed, with focus on chronic disease monitoring and preventive health strategies.
== END 2024-10-03 16:13 | disposition home or self-care (01) ==
PROVIDERS: PCP Internal Medicine; Visit Provider Internal Medicine
DX: Z00.00 Encounter for general adult medical examination without abnormal findings (principal); E11.65 Type 2 diabetes mellitus with hyperglycemia; E66.01 Morbid (severe) obesity due to excess calories; Z68.41 Body mass index [BMI] 40.0-44.9, adult; I10 Essential (primary) hypertension; E78.00 Pure hypercholesterolemia, unspecified; K21.9 Gastro-esophageal reflux disease without esophagitis; G47.33 Obstructive sleep apnea (adult) (pediatric); I87.2 Venous insufficiency (chronic) (peripheral)

== ENCOUNTER 2025-01-01 15:43 | Outpatient (AMB) | payer OTHER, SELFPAY ==
[2025-01-01 16:45] VITALS: BP 120/68; PULSE 70; RESP 16; TEMP 36.2; O2SAT 98; BMI 42.3
--- NOTE | 2025-01-01 16:45 | A.OFFPC_ITS ---
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: No Accompanied by: Self / Same As Patient Allergies lisinopril [LISINOPRIL] Allergy (Severe, Verified 01/01/25 16:46) ANGIOEDEMA, COUGH mold Allergy (Severe, Verified 01/01/25 16:46) runnig nose / nasal simvastatin [SIMVASTATIN] Allergy (Intermediate, Verified 01/01/25 16:46) SWOLLEN JOINTS Tobacco use date assessed: 01/01/25 Fall risk assessment: No Falls in past year Last assessed Fall Risk: 01/01/25 Dental Screening Dental Screen Date: 01/01/25 Did you have a dental visit in the last 12 months?: Yes Did you have a dental problem in the last 6 months where you did not have access to dental care?: No Was dental information given to patient?: Patient has dentist [facility] Medical History (Updated 01/01/25 @ 17:23 by Jeremy Willis MD) Neck fullness Tinea pedis Dysuria Right inguinal hernia Renal calculi Iron deficiency anemia Obstructive sleep apnea Obesity GERD (gastroesophageal reflux disease) Anxiety Insomnia Hypercholesterolemia Type 2 diabetes mellitus with hyperglycemia Vitamin D deficiency Allergic rhinitis Hypertension Surgical History Hx of cystoscopy History of tonsillectomy and adenoidectomy History of ear surgery History of inguinal hernia repair Family History Father Hypertension CVD (cardiovascular disease) Myocardial infarction Mother Hypertension CVD (cardiovascular disease) CAD (coronary artery disease) Sister Myocardial infarction Brother Alcohol abuse CVA (cerebral vascular accident) Social History Housing: House Alcohol intake: current Alcohol intake frequency: holidays/special occasions only Alcohol type: beer Comment: once Q4 months 2 drinks Patient Tobacco Use Status: Never used Tobacco Tobacco use type: Cigarette e-Cigarette/Vaping Use: Never Used Second Hand Smoke Exposure: No service: No Current occupational status: employed Cognitive needs: No Hearing needs: Yes Vision needs: No Questionnaire Thrive Questionnaire Date Thrive assessed: 10/03/24 I am a: Patient What is your living situation today?: I have a steady place to live Within the past 12 months, did the food you bought not last and you didn't have the money to get more?: Never true Within the past 12 months, did you worry whether your food would run out before you got money to buy more?: Never true Do you have trouble paying for medicines?: No Do you have trouble getting transportation to medical appointments?: No Do you have trouble paying your heating and electricity bill?: No Do you have trouble taking care of your child, family member or friend?: No Do you have trouble with day-to-day activities such as bathing, preparing meals, shopping, managing finances, etc.?: No Are you currently unemployed and looking for a job?: No Are you interested in more education?: No Please select the resources that you would like help with: None Currently or been in a relationship where the following occur: No concerns reported THRIVE Score: 0 TONNY-7 AMB Questionnaire TONNY-7 Date TONNY - 7 assessed: 10/03/24 Source: Developed by Drs. Rajeev Adams, Macey Snow, Sammy Dejesus and colleagues, with an educational jaimie from [employer]. Physical exam (Primary Care) Vital Signs: Last Vital Signs Temp 97.1 F 01/01/25 16:45 Pulse 70 01/01/25 16:45 Resp 16 01/01/25 16:45 BP 120/68 01/01/25 16:45 Pulse Ox 98 01/01/25 16:45 Oxygen Delivery Method Room Air 01/01/25 16:45 BMI result Body Mass Index 42.3 Tobacco/Smoking Status: Tobacco use Status Tobacco use date assessed 01/01/25 01/01/25 16:54 Patient Tobacco Use Status Never used Tobacco 01/01/25 16:54 Tobacco use type Cigarette 01/01/25 16:54 e-Cigarette/Vaping Use Never Used 01/01/25 16:54 Thrive Assessment: Date of Thrive Assessment Date Thrive assessed 10/03/24 01/01/25 16:54 Currently or been in a relationship where the following occur: No concerns reported Const General: alert; No acute distress Eyes Conjunctivae: conjunctivae normal Resp Auscultation: clear to auscultation bilaterally Cardio Rate: regular rate Rhythm: regular rhythm GI Inspection: Yes normal to inspection Extrem General: Yes normal to inspection and No edema Results AMB Hemoglobin A1c AMB Hemoglobin A1c 7.2 % Last Edit by AISHA Cordova on 01/01/25 16:57 Results Reviewed Results Reviewed: Laboratory Last Values Hgb A1c (Clinic) 7.2 % (4.0-6.0) H 01/01/25 16:57 Coding Level of Care Code Est Pt Level 4 (23722) Complex EM visit Add On G2211 Diagnoses Type 2 diabetes mellitus with hyperglycemia, without long-term current use of insulin E11.65 Diabetes mellitus usp insulin use: without termite exterminator use Essential hypertension I10 Hypertension type: essential hypertension Hypercholesterolemia E78.00 Gastroesophageal reflux disease without esophagitis K21.9 Esophagitis presence: without esophagitis Morbid obesity due to excess calories E66.01 Obstructive sleep apnea G47.33 Assessment & Plan Assessment & Plan (1) Type 2 diabetes mellitus with hyperglycemia: Comment: Dr. Ortez Code(s): E11.65 - Type 2 diabetes mellitus with hyperglycemia Category: Medical Qualifiers: Diabetes mellitus termite exterminator insulin use: without usp use Qualified Code(s): E11.65 - Type 2 diabetes mellitus with hyperglycemia Plan: Decrease the amount of carbohydrate intake, pasta, bread, rice and potatoes are all sugar and that is aside from all the sweet stuff, remember that fruits are good but they are Sweet also. Hemoglobin A1c goal of less than 6.5. Patient on Jardiance 25 mg once a day metformin 500 mg twice a day (2) Hypertension: Code(s): I10 - Essential (primary) hypertension Category: Medical Qualifiers: Hypertension type: essential hypertension Qualified Code(s): I10 - Essential (primary) hypertension Plan: Continue with blood pressure medication. Decrease salt intake and exercise on metoprolol 50 mg once a day ear irbesartan 75 mg once a day (3) Hypercholesterolemia: Code(s): E78.00 - Pure hypercholesterolemia, unspecified Category: Medical Plan: Avoid fried foods, chicken skin, eggs, butter margarine, pastries and meat. Be it pork or beef they have a lot of cholesterol LDL goal of less than 100 and triglyceride of less than 150 on pravastatin 10 mg once a day (4) GERD (gastroesophageal reflux disease): Code(s): K21.9 - Gastro-esophageal reflux disease without esophagitis Category: Medical Qualifiers: Esophagitis presence: without esophagitis Qualified Code(s): K21.9 - Gastro-esophageal reflux disease without esophagitis Plan: Avoid the foods that causes that usually spicy foods, tomato products, juices, coffee, soda and foods that your sensitive to. After eating do not lie down, allow 3-4 hours before in lie down. And keep the head of bed above 30 degrees to avoid the acid from going up. (5) Morbid obesity due to excess calories: Code(s): E66.01 - Morbid (severe) obesity due to excess calories Category: Medical Plan: Diet and exercise (6) Obstructive sleep apnea: Comment: CPAP use Q night > 4 hours and benefits patient Sleep study October 2022 Code(s): G47.33 - Obstructive sleep apnea (adult) (pediatric) Category: Medical Plan: Continue to use the CPAP more than 4 hours a night and benefits from this Plan History of Present Illness The patient is a 64-year-old male presenting for a follow-up of his Type 2 Diabetes Mellitus, now with a hemoglobin A1c of 7.2, up from 6.8 in September 2024, indicating suboptimal control. He is on Jardiance and Metformin. His treatment goal is an A1c below 6.5, and dietary triggers, such as high-sugar foods, are being addressed. The patient also has Essential Hypertension with recent readings at 120/60 mmHg, managed with Metoprolol and Irbesartan. His Hypercholesterolemia is managed with Pravastatin, and current LDL is 83 mg/dL, beneath the target of 100 mg/dL. Obstructive Sleep Apnea is managed with consistent CPAP use. Gastroesophageal Reflux Disease is controlled through lifestyle changes. Ophthalmologic evalua tion noted cataracts, not yet visually impairing, with annual follow-up arranged. Other conditions, including Venous Stasis and Rheumatoid Arthritis, remain stable. He maintains regular dental check-ups, with the latest results satisfactory. Health Maintenance - Annual ophthalmology exams; last in November 2024, showing no retinopathy and early cataracts. - Regular dental evaluations; last seen with reported satisfactory oral health. - Blood pressure management with current readings at 120/60 mmHg. - Blood lipid profile: LDL at 83 mg/dL in September 2024. - Regular evaluation of renal function and electrolytes, both normal. - Management of hemoglobin A1c; goal less than 6.5%. - Regular use of CPAP for apnea, more than 4 hours nightly. - Discussed dietary impacts on glucose and cholesterol; detailed guidance on controlling sugar intake. - Vaccination guidance: ADVISED pneumonia vaccination due to age (64). Social History - The patient reports inconsistency in exercise due to weather conditions but enjoys walking as a form of exercise. - No current employment status discussed. - Dietary advice includes moderation of high-sugar foods like bagels and bananas, enjoys blueberries and Cheerios multigrain cereal. Review of Systems - Endocrine: Reports elevating blood glucose levels, with Hemoglobin A1c at 7.2%. - Cardiac: Denies chest pain; reports normal blood pressure readings. - Respiratory: Denies recent respiratory symptoms; noted Obstructive Sleep Apnea managed with CPAP. - Gastrointestinal: Reports Gastroesophageal Reflux Disease managed with diet. - Ophthalmologic: Denies significant visual impairment; reported cataracts not currently impacting vision. - Musculoskeletal: Denies recent exacerbation of Rheumatoid Arthritis symptoms. - Neurological: Denies changes; vigilant monitoring advised for diabetes-related complications. - Vascular: Denies changes in venous stasis condition. - Allergy/Immunology: Denies recent respiratory infections; offered pneumonia vaccination. Physical Exam - Vitals- Blood Pressure 120/60 mmHg. - General- No evident distress noted. Results - Labs: Hemoglobin A1c 7.2% (elevated from 6.8% in September 2024), LDL 83 mg/dL (previously 66 mg/dL). - Ophthalmology: Evaluation in November 2024; noted early cataracts, no diabetic retinopathy. Plan 1. 5%. The patient's blood pressure is well-controlled with Metoprolol and Irbesartan. His cholesterol is managed with Pravastatin, continuing to aim for LDL levels below 100 mg/dL. I advised maintaining a healthful diet and exercise routine to aid with GERD and overall metabolic health. Obstructive Sleep Apnea is managed with CPAP nightly. Cataracts are not visually significant yet but require follow-up in a year. A pneumonia vaccination is recommended and will be administered today as per age guidelines. Continuous monitoring without immediate change is appropriate for Rheumatoid Arthritis and venous stasis.: Patient was informed and verbally consented to the use of an ambient scribe for clinic note documentation during this visit. Discussion Notes I discussed with the patient the management strategies for Type 2 Diabetes Mellitus, highlighting the importance of achieving an A1c target of less than 6.5%. We reviewed his current medication regimen, consisting of Jardiance and Metformin, and the need for dietary modifications to manage glucose levels. His blood pressure control is noted to be stable, managed with Metoprolol and Irbesartan. I explained that cholesterol is being managed effectively with Pravastatin, with LDL currently acceptable but with continued lifestyle modifications. We discussed the importance of ongoing CPAP use to manage obstructive sleep apnea and how regular exercise and diet are crucial for GERD management. I noted the need to monitor cataracts with annual ophthalmologic evaluations. Preventive care was addressed, with emphasis placed on receiving a pneumonia vaccination due to age. I explained the benefits and importance of this vaccination. Regular dental check-ups were noted with no current issues, maintaining regular follow-ups. Patient Instructions - Take Jardiance 25 mg once daily and Metformin 500 mg twice daily for blood sugar control. - Monitor blood pressure regularly and continue taking Metoprolol 50 mg and Irbesartan 75 mg daily. - Maintain cholesterol management with Pravastatin 10 mg daily. - Use CPAP every night for more than 4 hours. - Receive the pneumonia vaccine today. - Incorporate regular physical activity, considering alternatives for adverse weather like mall walking. - Follow dietary guidance?limit sugar intake, and prefer whole foods. - Schedule a follow-up ophthalmic exam in one year. - Schedule a follow-up visit in three months to reassess Hemoglobin A1c. Orders: Orders AMB Hemoglobin A1c Today E11.65 - Type 2 diabetes mellitus with hyperglycemia
== END 2025-01-01 17:38 | disposition home or self-care (01) ==
LOC: HO.HMCH 15:44
PROVIDERS: PCP Internal Medicine; Visit Provider Internal Medicine
DX: E11.65 Type 2 diabetes mellitus with hyperglycemia (principal); E66.01 Morbid (severe) obesity due to excess calories; Z68.41 Body mass index [BMI] 40.0-44.9, adult; I10 Essential (primary) hypertension; E78.00 Pure hypercholesterolemia, unspecified; K21.9 Gastro-esophageal reflux disease without esophagitis; G47.33 Obstructive sleep apnea (adult) (pediatric); Z23 Encounter for immunization

== ENCOUNTER → 2025-01-01 15:43 | Outpatient (BNVA) | payer OTHER, SELFPAY | PROVIDERS: PCP Internal Medicine; Visit Provider Internal Medicine | DX: E11.65 Type 2 diabetes mellitus with hyperglycemia (principal); I10 Essential (primary) hypertension; E78.00 Pure hypercholesterolemia, unspecified; K21.9 Gastro-esophageal reflux disease without esophagitis; E66.01 Morbid (severe) obesity due to excess calories; G47.33 Obstructive sleep apnea (adult) (pediatric); M06.9 Rheumatoid arthritis, unspecified; Z23 Encounter for immunization; Z68.41 Body mass index [BMI] 40.0-44.9, adult; Z79.899 Other long term (current) drug therapy; Z79.84 Long term (current) use of oral hypoglycemic drugs; Z99.89 Dependence on other enabling machines and devices | CPT/HCPCS: 83036; 90471; 90677 ==

== ENCOUNTER 2025-03-20 16:11 | Outpatient (AMB) | payer OTHER, SELFPAY ==
[2025-03-20 16:13] VITALS: BP 120/74; PULSE 70; O2SAT 96; BMI 43.2
--- NOTE | 2025-03-20 16:13 | MHC.OFFVIS ---
Vital Signs 03/20/25 16:13 Height 5 ft 2 in Weight 236 lb BMI 43.2 BP 120/74 Blood Pressure Location Rt brachial Position Sitting Pulse 70 Pulse Source Pulse Oximeter Pulse Oximetry (%) 96 Oxygen Delivery Method Room Air Intake Visit Reasons: GERD mgmt. ~ 1 Year FUV. Intake Note: Est pt for mgmt of GERD. CC; Pt denies any GI sx or concerns at this time. PPI still effective. Pt does not need refill at this time. 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 ~ 1 Year FUV.: Details: LAST VISIT: GERD (gastroesophageal reflux disease) Screen for colon cancer Plan What to expect before during and after procedure discussed with patient. Stressed the importance of good bowel prep and clear liquid diet day before procedure. Patient will stop Metamucil 3-5 days before procedure. Patient will continue taking omeprazole daily. Continue avoiding dietary triggers, avoid drinking soda and carbs. I will see patient after the procedure, sooner on as needed basis. He is agreeable to this plan and verbalizes understanding of instructions. He was given the opportunity to ask questions and all questions answered. ? Thank you for allowing me to participate in his care New bisacodyl (Dulcolax (bisacodyl)) take 4 tabs at noon the day before your colonoscopy 20 mg (4 x 5 mg) PO ONCE 1 day 4 tabs 0RF Z12.11 polyethylene glycol 3350 (Miralax) As directed by gastroenterology department at [facility] 238 grams PO ONCE 238 grams 0RF Z12.11 COLONOSCOPY: Findings: Terminal Ileum-normal Cecum:normal over ileocecal valve slightly raised tissue could be just prolapsed TI, biopsy excised with cold forceps Ascending Colon: normal Transverse Colon -normal Descending Colon:normal Sigmoid Colon: 8-9 mm sessile polyp removed with cold snare Rectum: Retroflexion with small internal hemorrhoids seen, grade I Anorectum - normal Intervention: cold snare, cold forceps Colon preparation: [place] Bowel Preparation Scale Right colon; 2 Transverse colon: 2 Left colon; 2 (0 = Unprepared colon segment with mucosa not seen due to solid stool that cannot be cleared. 1 = Portion of mucosa of the colon segment seen, but other areas of the colon segment not well seen due to staining, residual stool and/or opaque liquid. 2 = Minor amount of residual staining, small fragments of stool and/or opaque liquid, but mucosa of colon segment seen well. 3 = Entire mucosa of colon segment seen well with no residual staining, small fragments of stool or opaque liquid) Impression and Post Procedure Diagnosis: colon polyps internal hemorrhoids Plan: High fiber diet leaflet Avoid straining at stool, epsom salts and sitz bath, anusol supps or cream Repeat Colonoscopy in 5 years due to few areas of fair prep and adenomatous appearing polyp in sigmoid by pit markings or earlier if clinically indicated PATHOLOGY RESULTS Diagnosis A. Terminal ileal valve, polyp: Polypoid colonic mucosa with prominent lymphoid aggregates; no adenomatous dysplasia seen. B. Colon, sigmoid, polyp: Tubular adenoma, likely excised; negative for high-grade dysplasia and carcinoma. TODAY'S VISIT: Patient is here today for follow-up and to discuss colonoscopy results. Patient denies any ill effects from the prep, anesthesia or procedure itself. Reports to be feeling well. Acid reflux controlled with PPI. Patient denies any breakthrough symptoms. Denies any dyspepsia, dysphagia or odynophagia. Patient denies any melena, hematochezia, unintentional weight loss or ribbon like stools. Patient reports to be feeling well and denies any GI concerning symptoms. [facility] Medical History Neck fullness Tinea pedis Dysuria Right inguinal hernia Renal calculi Iron deficiency anemia Obstructive sleep apnea Obesity GERD (gastroesophageal reflux disease) Anxiety Insomnia Hypercholesterolemia Type 2 diabetes mellitus with hyperglycemia Vitamin D deficiency Allergic rhinitis Hypertension Surgical History Hx of cystoscopy History of tonsillectomy and adenoidectomy History of ear surgery History of inguinal hernia repair Family History Father Hypertension CVD (cardiovascular disease) Myocardial infarction Mother Hypertension CVD (cardiovascular disease) CAD (coronary artery disease) Sister Myocardial infarction Brother Alcohol abuse CVA (cerebral vascular accident) Social History Housing: House Alcohol intake: current Alcohol intake frequency: holidays/special occasions only Alcohol type: beer Comment: once Q4 months 2 drinks Patient Tobacco Use Status: Never used Tobacco Tobacco use type: Cigarette e-Cigarette/Vaping Use: Never Used Second Hand Smoke Exposure: No service: No Current occupational status: employed Cognitive needs: No Hearing needs: Yes Vision needs: No Review of Systems Const Denies weight gain and Denies weight loss ENT Reports no additional complaints, Denies dysphagia and Denies odynophagia Card Reports no additional complaints Resp Reports no additional complaints GI Denies abdominal pain, Denies belching, Denies melena, Denies bloating, Denies change in bowel habits, Denies dysphagia, Denies excessive flatus, Denies dyspepsia, Denies heartburn, Denies diarrhea, Denies loose stools, Denies nausea, Denies odynophagia and Denies vomiting Reports no additional complaints Musc Reports no additional complaints Neuro Reports no additional complaints Psych Reports no additional complaints Endo Reports no additional complaints Physical Exam Vital Signs: Last Vital Signs Pulse 70 03/20/25 16:13 BP 120/74 03/20/25 16:13 Pulse Ox 96 03/20/25 16:13 Oxygen Delivery Method Room Air 03/20/25 16:13 BMI result Body Mass Index 43.2 Const General: healthy appearing and no acute distress Nutritional Appearance: obese Orientation/consciousness: patient oriented x3 Resp Effort & Inspection: normal respiratory effort, able to speak in complete sentences, no tracheal deviation and symmetric chest movement Auscultation: clear to auscultation bilaterally Cardio Rate: regular rate GI Inspection: Yes normal to inspection, No distended and Yes obesity Palpation (GI): Soft to palpation, not firm, nontender and No hepatosplenomegaly present Auscultation: normal bowel sounds General: Yes no CVA tenderness Back/Spine/Pelvis Back: no CVA tenderness Skin General skin exam: elasticity normal, turgor normal and dry skin Neuro General: patient oriented x3 Psych Appearance: grossly normal Mental Status: mental status grossly normal Assessment & Plan Assessment & Plan (1) GERD (gastroesophageal reflux disease): Code(s): K21.9 - Gastro-esophageal reflux disease without esophagitis Category: Medical Qualifiers: Esophagitis presence: without esophagitis Qualified Code(s): K21.9 - Gastro-esophageal reflux disease without esophagitis Plan Patient will continue PPI. Avoid dietary triggers in late night snacking. Staying upright for minimum 3 hours after meals discussed with patient. Follow-up in 1 year. Colonoscopy in 5 years, sooner if clinically necessary. Patient is agreeable to this plan and verbalizes understanding of instructions. He was given the opportunity to ask questions and all questions answered. Thank you for allowing me to participate in his care Coding Level of Care Code Est Pt Level 3 (14659) Diagnoses Gastroesophageal reflux disease without esophagitis K21.9 Esophagitis presence: without esophagitis Time Spent (min) 30 Comment 20 minutes spent with patient and additional 10 minutes spent reviewing his records
--- OUTSIDE RECORDS SUMMARY | 2025-03-20 16:15 | XMS_ITS | Patient Health Record ---
Author Organization [facility] Address [address] [place] [address] Care Team Providers Care Armorer Technician Name Role Phone Po Jeremy RIVAS Primary Care Provider Rajeev Rehman [phone] Allergies Allergen (clinical drug ingredient) Drug/Non Drug Allergy documented on EMR Reaction Allergy Type Onset Date Status lisinopril Lisinopril Unknown Drug Allergy Activ e Reason For Referral No Information Medications Medication SIG (Take, Route, Fr equency, Duration) Notes Start Date End Date Status MoviPrep 100 GM as directed Orally a s directed for 1 dose 11/12/2014 Active Cozaar 50 MG 1 tablet Orally Once a day Active Toprol XL 100 MG 1 tablet Orally Once a day Active Problems Problem Type SNOMED Code ICD Code Onset Dates Problem Status W/U Status Risk Notes Problem Pre-surgery evaluation (475136920) Other specified pre-operative examination (V72.83) Active confirmed Problem Colon cancer screening (624661711) Colon cancer screening (V76.51) Active confirmed Problem History of adenomatous polyp of colon (365337984) History of adenomatous polyp of colon (V12.72) Active confirmed Plan Of Treatment Future Test Test Name Order Date COLONOSCOPY 11/11/2014 Insurance Providers Payer Name Payer Address Payer Phone Subscriber Number Group Number Insured Name Patient Relationship to Insured Coverage Start Date Coverage End Date [facility] [address] [place] [phone] [id number] WENCESLAO ABRAHAM Self - patient is the insured Medical (General) History Medical History History ICD Code colonoscopy 01-31-2010- tubu lar adenomas removed, sigmoid diverticulosis, internal hemorrhoids hypertension Denies OH,DM,CVA,Lung disease,renal dise ase Sleep apnea-uses CPAP Kidney stones Surgical History Surgery Date(Month/Year) Hernia surgery-left inguinal-mesh Ear surgery-tubes Benign lymph node biopsy
== END 2025-03-20 16:34 | disposition home or self-care (01) ==
LOC: HO.HGI 16:12
PROVIDERS: PCP Internal Medicine; Visit Provider Nurse Practitioner Family
DX: K21.9 Gastro-esophageal reflux disease without esophagitis (principal)
CPT/HCPCS: 99213

== ENCOUNTER 2025-03-26 10:57 | Outpatient (AMB) | payer OTHER, SELFPAY ==
--- NOTE | 2025-03-26 10:57 | A.OFFPC_ITS ---
Intake Visit Reasons: left ear pain and possible sinus infection Allergies lisinopril (LISINOPRIL) Allergy (Severe, Verified 03/26/25 11:04) ANGIOEDEMA, COUGH mold Allergy (Severe, Verified 03/26/25 11:04) runnig nose / nasal simvastatin (SIMVASTATIN) Allergy (Intermediate, Verified 03/26/25 11:04) SWOLLEN JOINTS Medication List - Last Reconciled 03/26/25 by Veena Nicole PA-C [AUTO PAP 6-16 cm H2O humidified AIR As directed] blood sugar diagnostic (FreeStyle Lite Strips) As directed to test BS 3 times per day blood-glucose meter (FreeStyle Lite Meter kit) As directed to test BS 3 times per day cholecalciferol (vitamin D3) 25 mcg PO DAILY clotrimazole 1% 1 appl topical BID 4 weeks cyanocobalamin (vitamin B-12) 1,000 mcg PO DAILY empagliflozin (Jardiance) 25 mg PO DAILY fexofenadine (Mulu Allergy) 180 mg PO DAILY ipratropium bromide 2 sprays intranasal BID irbesartan 75 mg PO DAILY lancets (FreeStyle Lancets) As directed to test BS 3 times per day metformin 500 mg PO BID metoprolol succinate ER 50 mg PO DAILY 90 days omeprazole 40 mg PO DAILY pravastatin 10 mg PO DAILY Tobacco use date assessed: 01/01/25 Dental Screening Dental Screen Date: 01/01/25 HPI left ear pain and possible sinus infection HPI Details 64-year-old male with past medical histo ry of hypertension, diabetes mellitus, hypercholesterolemia, GERD, obstructive sleep apnea, obesity last seen 12/2024 presenting via telehealth for acute problem. Presenting with symptoms suggestive of allergy and sinus drainage. Symptoms began Sunday with ear soreness, sinus drainage, and pressure, attributed to leaving a window open, exacerbating allergies. Experiences these symptoms annually, typically resolved with a prescription. Denies fever, maintains regular exercise, walking three to four miles per hour for 45 minutes each night . Tried decongestants and Advil, providing temporary relief for nasal symptoms but not ear pressure. Uses hearing aids, noticed ear wax accumulation, manages by removing aids to facilitate drainage. [facility] Medical History Neck fullness Tinea pedis Dysuria Right inguinal hernia Renal calculi Iron deficiency anemia Obstructive sleep apnea Obesity GERD (gastroesophageal reflux disease) Anxiety Insomnia Hypercholesterolemia Type 2 diabetes mellitus with hyperglycemia Vitamin D deficiency Allergic rhinitis Hypertension Surgical History Hx of cystoscopy History of tonsillectomy and adenoidectomy History of ear surgery History of inguinal hernia repair Family History Father Hypertension CVD (cardiovascular disease) Myocardial infarction Mother Hypertension CVD (cardiovascular disease) CAD (coronary artery disease) Sister Myocardial infarction Brother Alcohol abuse CVA (cerebral vascular accident) Social History Housing: House Alcohol intake: current Alcohol intake frequency: holidays/special occasions only Alcohol type: beer Comment: once Q4 months 2 drinks Patient Tobacco Use Status: Never used Tobacco Tobacco use type: Cigarette e-Cigarette/Vaping Use: Never Used Second Hand Smoke Exposure: No service: No Current occupational status: employed Cognitive needs: No Hearing needs: Yes Vision needs: No Questionnaire Thrive Questionnaire Date Thrive assessed: 10/03/24 TONNY-7 AMB Questionnaire TONNY-7 Date TONNY - 7 assessed: 10/03/24 Source: Developed by Drs. Rajeev Adams, Macey Snow, Sammy Dejesus and colleagues, with an educational jaimie from [employer] Review of Systems Const Denies body aches, Denies chills, Denies fever(s), Reports headache(s) and Denies poor appetite Eyes Reports no additional complaints ENT Denies dizziness, Reports otalgia (left), Reports facial pain, Reports headache(s), Reports nasal congestion, Reports nasal discharge, Reports sinus pain and Reports sinus pressure Card Denies chest pain, Denies lightheadedness and Denies dyspnea Resp Denies cough and Denies dyspnea GI Denies abdominal pain, Denies nausea and Denies vomiting Reports no additional complaints Musc Reports no additional complaints and Denies abnormal gait Skin/Breast Reports system reviewed and no additional complaints, except as documented Neuro Denies abnormal gait, Denies dizziness and Reports headache(s) Psych Reports no additional complaints Physical exam (Primary Care) Vital Signs: Vital signs and physical exam not performed due to nature of telehealth visit Tobacco/Smoking Status: Tobacco use Status Tobacco use date assessed 01/01/25 03/26/25 10:57 Patient Tobacco Use Status Never used Tobacco 03/26/25 10:57 Tobacco use type Cigarette 03/26/25 10:57 e-Cigarette/Vaping Use Never Used 03/26/25 10:57 Thrive Assessment: Date of Thrive Assessment Date Thrive assessed 10/03/24 03/26/25 10:57 Telehealth Telehealth Telehealth Platform: Telephone Location of provider rendering services: practice address Location of patient: address on file Patient Identification confirmed using: Name, : Yes Telehealth method: voice only Patient verbally consented to treatment: Yes Patient verbally consented to billing insurance company: Yes Patient informed of any privacy concerns related to visit: Yes Coding Level of Care Code Tele Est Pt Level 3 (21998) Diagnoses Sinus pressure J34.89 Pressure sensation in left ear H93.8X2 Assessment & Plan Assessment & Plan (1) Sinus pressure: Code(s): J34.89 - Other specified disorders of nose and nasal sinuses Category: Medical Plan: I did discuss with the patient this is likely not a true sinus infection given the duration of symptoms has not exceeded 10-14 days. However given he is going on vacation I will send a prescription to the pharmacy at this time. I advised him to try conservative measures with saline nasal spray, antihistamine nasal sprays such as Flonase, Mulu and caution with decongestants given hypertension history. (2) Pressure sensation in left ear: Code(s): H93.8X2 - Other specified disorders of left ear Category: Medical Plan: Pressure sensation in the left ear low concern for infection at this time. Caution with decongestants given HTN history. Recommend antihistamines and saline nasal spray as this is likely allergy related. See above Plan The patient will receive a prescription for a Z-Дмитрий to manage the ear infection and sinus drainage, particularly due to the planned vacation. Prior to initiating the antibiotic, the patient should try saline nasal spray and an allergy pill to reduce symptoms. Should symptoms continue, the patient is advised to commence the antibiotic regimen. This note was constructed using voice recognition software. While every effort has been made to ensure accuracy and digital marketing associate, still areas may have been included sometimes these areas may affect the content or meeting of the given symptoms. Total time spent caring for the patient today was 15 minutes. This includes time spent before the visit reviewing the chart, time spent during the visit, and time spent after the visit and documentation. Patient was informed and verbally consented to the use of an ambient scribe for clinic note documentation during this visit. Medications: New azithromycin For 250 mg dose pack: take 500 mg today (day 1), then 250 mg for 4 days (days 2-5) PO 6 tabs 0RF azithromycin For 250 mg dose pack: take 500 mg today (day 1), then 250 mg for 4 days (days 2-5) PO 6 tabs 0RF
--- OUTSIDE RECORDS SUMMARY | 2025-03-26 11:37 | XMS_ITS | Patient Health Record ---
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 Name Role Phone Po Jeremy RIVAS Primary Care Provider Rajeev Rehman [phone] Allergies Allergen (clinical drug ingredient) Drug/Non Drug [...] W/U Status Risk Notes Problem Pre-surgery evaluation (012283351) Other specified pre-operative examination (V72.83) Active confirmed Problem Colon cancer screening (V76.51) Active confirmed Problem History of adenomatous polyp of colon (499267625) History of adenomatous polyp of colon (V12.72) Active confirmed Plan Of Treatment Future Test Test Name Order Date COLONOSCOPY 11/11/2014 Insurance Providers Payer Name Payer Address Payer Phone Subscriber Number Group Number Insured Name Patient Relationship to Insured Coverage Start Date Coverage End Date [facility] [address] [place] [phone] [id number] WENCESLAO ABRAHAM Self - patient is the insured Medical (General) History Medical History History ICD Code colonoscopy 01-31-2010- tubu lar adenomas removed, sigmoid diverticulosis, internal hemorrhoids hypertension Denies SC,DM,CVA,Lung disease,renal dise ase Sleep apnea-uses CPAP Kidney stones Surgical History Surgery Date(Month/Year) Hernia surgery-left inguinal-mesh Ear surgery-tubes Benign lymph node biopsy
== END 2025-03-26 11:30 | disposition home or self-care (01) ==
LOC: HO.HMCH 10:57
PROVIDERS: PCP Internal Medicine
DX: J34.89 Other specified disorders of nose and nasal sinuses (principal); H93.8X2 Other specified disorders of left ear

== ENCOUNTER 2025-05-07 15:48 | Outpatient (AMB) | payer OTHER, SELFPAY ==
--- NOTE | 2025-05-07 15:56 | A.OFFPC_ITS ---
Vital Signs 05/07/25 15:57 Height 5 ft 2 in Weight 231 lb 6 oz BMI 42.3 BP 114/70 Blood Pressure Location Lt brachial Position Sitting Pulse 71 Pulse Source Pulse Oximeter Temp 97.3 F Temp Source Temporal Artery Scan Pulse Oximetry (%) 98 Oxygen Delivery Method Room Air Intake Visit Reasons: DM Allergies lisinopril (LISINOPRIL) Allergy (Severe, Verified 05/07/25 16:01) ANGIOEDEMA, COUGH mold Allergy (Severe, Verified 05/07/25 16:01) runnig nose / nasal simvastatin (SIMVASTATIN) Allergy (Intermediate, Verified 05/07/25 16:01) SWOLLEN JOINTS Tobacco use date assessed: 05/07/25 Fall risk assessment: No Falls in past year Last assessed Fall Risk: 05/07/25 Dental Screening Dental Screen Date: 05/07/25 Did you have a dental visit in the last 12 months?: Yes Did you have a dental problem in the last 6 months where you did not have access to dental care?: No Was dental information given to patient?: Patient has dentist [facility] Medical History Neck fullness Tinea pedis Dysuria Right inguinal hernia Renal calculi Iron deficiency anemia Obstructive sleep apnea Obesity GERD (gastroesophageal reflux disease) Anxiety Insomnia Hypercholesterolemia Type 2 diabetes mellitus with hyperglycemia Vitamin D deficiency Allergic rhinitis Hypertension Surgical History Hx of cystoscopy History of tonsillectomy and adenoidectomy History of ear surgery History of inguinal hernia repair Family History Father Hypertension CVD (cardiovascular disease) Myocardial infarction Mother Hypertension CVD (cardiovascular disease) CAD (coronary artery disease) Sister Myocardial infarction Brother Alcohol abuse CVA (cerebral vascular accident) Social History Housing: House Alcohol intake: current Alcohol intake frequency: holidays/special occasions only Alcohol type: beer Comment: once Q4 months 2 drinks Patient Tobacco Use Status: Never used Tobacco Tobacco use type: Cigarette e-Cigarette/Vaping Use: Never Used Second Hand Smoke Exposure: No service: No Current occupational status: employed Cognitive needs: No Hearing needs: Yes Vision needs: No Questionnaire PHQ-9 Over the last 2 weeks, how often have you been bothered by any of the following problems? 1. Little interest or pleasure in doing things: not at all 2. Feeling down, depressed, or hopeless: not at all 3. Trouble falling or staying asleep, or sleeping too much: not at all 4. Feeling tired or having little energy: not at all 5. Poor appetite or overeating: not at all 6. Feeling bad about yourself - or that you are a failure or have let yourself or your family down: not at all 7. Trouble concentrating on things, such as reading the newspaper or watching television: not at all 8. Moving or speaking so slowly that other people could have noticed. Or the opposite - being so fidgety or restless that you have been moving around a lot more than usual: not at all 9. Thoughts that you would be better off or of hurting yourself in some way: not at all Total score: 0 Source: Developed by Drs. Rajeev Adams, Macey Snow, Sammy Dejesus and colleagues, with an educational jaimie from [employer]. Thrive Questionnaire Date Thrive assessed: 10/03/24 I am a: Patient What is your living situation today?: I have a steady place to live Within the past 12 months, did the food you bought not last and you didn't have the money to get more?: Never true Within the past 12 months, did you worry whether your food would run out before you got money to buy more?: Never true Do you have trouble paying for medicines?: No Do you have trouble getting transportation to medical appointments?: No Do you have trouble paying your heating and electricity bill?: No Do you have trouble taking care of your child, family member or friend?: No Do you have trouble with day-to-day activities such as bathing, preparing meals, shopping, managing finances, etc.?: No Are you currently unemployed and looking for a job?: No Are you interested in more education?: No Please select the resources that you would like help with: None Currently or been in a relationship where the following occur: No concerns reported THRIVE Score: 0 AUDIT C Alcohol Use Questionnaire (AUDIT-C) 1. How often do you have a drink containing alcohol?: Monthly or less 2. How many drinks containing alcohol do you have on a typical day when you are drinking?: 1 or 2 3. How often do you have six or more drinks on one occasion?: Never Total Score: 1 TONNY-7 AMB Questionnaire TONNY-7 Date TONNY - 7 assessed: 10/03/24 Feeling nervous, anxious, or on edge: 0 = Not at all Not being able to stop or control worryin = Not at all Worrying too much about different things: 0 = Not at all Trouble relaxin = Not at all Being so restless that it is hard to sit still: 0 = Not at all Becoming easily annoyed or irritable: 0 = Not at all Feeling afraid as if something awful might happen: 0 = Not at all Total TONNY-7 score (0-4 normal; 5-9 mild; 10-14 moderate; 15-21 severe): 0 Source: Developed by Drs. Rajeev Adams, Macey Snow, Sammy Dejesus and colleagues, with an educational jaimie from [employer]. Physical exam (Primary Care) Vital Signs: Last Vital Signs Temp 97.3 F 05/07/25 15:57 Pulse 71 05/07/25 15:57 BP 114/70 05/07/25 15:57 Pulse Ox 98 05/07/25 15:57 Oxygen Delivery Method Room Air 05/07/25 15:57 BMI result Body Mass Index 42.3 Tobacco/Smoking Status: Tobacco use Status Tobacco use date assessed 05/07/25 05/07/25 16:03 Patient Tobacco Use Status Never used Tobacco 05/07/25 16:03 Tobacco use type Cigarette 05/07/25 16:03 e-Cigarette/Vaping Use Never Used 05/07/25 16:03 PHQ-9: PHQ-9 Score PHQ-9: Total score 0 05/07/25 16:30 Thrive Assessment: Date of Thrive Assessment Date Thrive assessed 10/03/24 05/07/25 16:03 Currently or been in a relationship where the following occur: No concerns reported Const General: alert; No acute distress Eyes Conjunctivae: conjunctivae normal Resp Auscultation: clear to auscultation bilaterally Cardio Rate: regular rate Rhythm: regular rhythm GI Inspection: Yes normal to inspection Extrem General: Yes normal to inspection and No edema Results AMB Hemoglobin A1c AMB Hemoglobin A1c 7.4 % Last Edit by Mitzy Gregg CMA on 05/07/25 16:05 Immunizations Tenivac (PF) 5 Lf unit-2 Lf unit/0.5 mL intramuscular syringe Performing Provider: Jeremy Willis MD Performing Location: [facility] Administered by: FRANCIS Cabrera on 05/07/25 16:57 Dose Route Admin Location Dispensed Lot Number Expiration Date NDC Director Of [employer] 0.5 mL IM Left Deltoid 0.5 mL [id number] 11/18/26 61611-531-79 [employer] Total Dispensed Waste 0.5 mL 0 % VIS Given Date VIS Provided VIS Publication Date 05/07/25 Single Vaccine 21 Eligibility Eligibility Date Funding Source Not [facility] Eligible 05/07/25 Private Results Reviewed Results Reviewed: Laboratory Last Values Hgb A1c (Clinic) 7.4 % (4.0-6.0) H 05/07/25 16:03 Coding Level of Care Code Est Pt Level 4 (99349) Complex EM visit Add On G2211 Diagnoses Type 2 diabetes mellitus with hyperglycemia, without long-term current use of insulin E11.65 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 Ortez Code(s): E11.65 - Type 2 diabetes mellitus with hyperglycemia Category: Medical Qualifiers: Diabetes mellitus custodial insulin use: without custodial use Qualified Code(s): E11.65 - Type 2 diabetes mellitus with hyperglycemia Plan: Decrease the amount of carbohydrate intake, pasta, bread, rice and potatoes are all sugar and that is aside from all the sweet stuff, remember that fruits are good but they are Sweet also. Hemoglobin A1c goal of less than 6.5. Patient is on Jardiance 25 mg once a day metformin 500 mg twice a day (2) Hypertension: Code(s): I10 - Essential (primary) hypertension Category: Medical Qualifiers: Hypertension type: essential hypertension Qualified Code(s): I10 - Essential (primary) hypertension Plan: Continue with blood pressure medication. Decrease salt intake and exercise on metoprolol 50 mg once a day irbesartan 75 mg once a day (3) Hypercholesterolemia: Code(s): E78.00 - Pure hypercholesterolemia, unspecified Category: Medical Plan: Avoid fried foods, chicken skin, eggs, butter margarine, pastries and meat. Be it pork or beef they have a lot of cholesterol LDL goal of less than 100 and triglyceride of less than 150 patient is taking pravastatin 10 mg once a (4) Morbid obesity due to excess calories: Code(s): E66.01 - Morbid (severe) obesity due to excess calories Category: Medical Plan: Diet and exercise (5) GERD (gastroesophageal reflux disease): Code(s): K21.9 - Gastro-esophageal reflux disease without esophagitis Category: Medical Qualifiers: Esophagitis presence: without esophagitis Qualified Code(s): K21.9 - Gastro-esophageal reflux disease without esophagitis Plan: Avoid the foods that causes that usually spicy foods, tomato products, juices, coffee, soda and foods that your sensitive to. After eating do not lie down, allow 3-4 hours before in lie down. And keep the head of bed above 30 degrees to avoid the acid from going up. (6) Obstructive sleep apnea: Comment: CPAP use Q night > 4 hours and benefits patient Sleep study October 2022 Code(s): G47.33 - Obstructive sleep apnea (adult) (pediatric) Category: Medical Plan: Continue to use the CPAP more than 4 hours a night and benefits from this. (7) Plantar wart of left foot: Code(s): B07.0 - Plantar wart Category: Medical Plan: discussed about podiatry referral Plan History of Present Illness The patient is a 64-year-old male presenting for a follow-up visit primarily for management of chronic conditions including diabetes mellitus, hypertension, and hypercholesterolemia. The patient has a history of systemic lupus erythematosus, type 2 diabetes mellitus, essential hypertension, hypercholesterolemia, gastroesophageal reflux disease, and obstructive sleep apnea. He reports a recent weight loss of 5 pounds and was last seen on March 26 for sinus pressure, which was treated with azithromycin. The patient underwent a colonoscopy in September 2024, and the results were r eviewed during this visit. He also consulted gastroenterology in March for GERD management and is currently on a proton pump inhibitor. Recent blood work from September showed normal blood count, electrolytes, and renal function. However, the hemoglobin A1c has increased to 7.4, and LDL cholesterol is at 83 mg/dL. The patient is on Jardiance 25 mg once daily and metformin 500 mg twice daily for diabetes management. For hypertension, he is taking metoprolol 50 mg once daily and ibuprofen 75 mg once daily. His cholesterol management includes pravastatin 10 mg once daily. The patient reports adherence to CPAP therapy for obstructive sleep apnea, using it for more than 4 hours a night. He also mentions a plantar wart on the left foot, which is causing discomfort. The patient has been experiencing emotional stress due to the recent passing of his brother, which has impacted his dietary habits, leading to increased consumption of unhealthy foods. He acknowledges the need to improve his diet and control his blood sugar levels better. Health Maintenance - Colonoscopy performed in September 2024 with results reviewed - Tetanus vaccination recommended and planned - CPAP therapy adherence for obstructive sleep apnea - Recent eye exam completed with Dr. Lockwood - Dental check-up completed with no issues reported Social History - Reports emotional stress due to the recent passing of his brother, impacting dietary habits - Engages in regular walking as a form of exercise Review of Systems - General: Reports weight loss of 5 pounds - Respiratory: Denies dyspnea, reports adherence to CPAP therapy - Gastrointestinal: Reports GERD, managed with proton pump inhibitor - Endocrine: Reports elevated hemoglobin A1c at 7.4 - Dermatological: Reports plantar wart on left foot causing discomfort Physical Exam Results - Labs: Normal blood count, electrolytes, and renal function as of September - Labs: Hemoglobin A1c elevated at 7.4, LDL cholesterol at 83 mg/dL Plan Patient was informed and verbally consented to the use of an ambient scribe for clinic note documentation during this visit. 1. Type 2 Diabetes Mellitus The patient's hemoglobin A1c has increased to 7.4, indicating suboptimal glycemic control. Current management includes Jardiance 25 mg once daily and metformin 500 mg twice daily. The patient acknowledges dietary indiscretions and plans to improve dietary habits to better control blood sugar levels. 2. Essential Hypertension The patient is currently on metoprolol 50 mg once daily and ibuprofen 75 mg once daily for blood pressure management. Blood pressure control appears stable, but continued monitoring is advised. 3. Hypercholesterolemia The patient's LDL cholesterol is currently at 83 mg/dL, managed with pravastatin 10 mg once daily. The goal is to maintain LDL cholesterol below 100 mg/dL. 4. Gastroesophageal Reflux Disease (Gerd) The patient is currently managed with a proton pump inhibitor for GERD. He has consulted gastroenterology for further management. 5. Obstructive Sleep Apnea The patient reports adherence to CPAP therapy, using it for more than 4 hours a night, which provides symptomatic relief. 6. Plantar Wart The patient reports a plantar wart on the left foot causing discomfort. He plans to try [id number]-[id number] treatments such as Compound W, with a referral to podiatry if symptoms persist. 7. Preventative Care The patient is due for a tetanus vaccination, which is planned for administration during this visit. He has completed a colonoscopy in September 2024, with results reviewed during this visit. Discussion Notes During the visit, we discussed the patient's current management of diabetes, hypertension, and hypercholesterolemia. The importance of dietary control and adherence to medication was emphasized, particularly in light of the recent increase in hemoglobin A1c levels. We also reviewed the patient's adherence to CPAP therapy for obstructive sleep apnea and discussed the management of a plantar wart on the left foot, including the option of ptfk-hkg-etopofu treatment and potential referral to podiatry if needed. Preventative care measures, including the need for a tetanus vaccination, were also addressed. Patient Instructions - Continue current medications for diabetes, hypertension, and cholesterol management. - Improve dietary habits to better control blood sugar levels. - Use CPAP machine for more than 4 hours each night for sleep apnea. - Try snzl-tal-qrnaswn treatment for plantar wart; consider podiatry referral if symptoms persist. - Schedule and receive tetanus vaccination as planned. Orders: Orders Td Immunization Today Z23 - Encounter for immunization AMB Hemoglobin A1c Today Z13.9 - Encounter for screening, unspecified AMB Hemoglobin A1c Today Z13.9 - Encounter for screening, unspecified Referrals Podiatry Referral B07.0 - Plantar wart
[2025-05-07 15:57] VITALS: BP 114/70; PULSE 71; TEMP 36.3; O2SAT 98; BMI 42.3
== END 2025-05-07 17:36 | disposition home or self-care (01) ==
LOC: HO.HMCH 15:49
PROVIDERS: PCP Internal Medicine; Visit Provider Internal Medicine
DX: E11.65 Type 2 diabetes mellitus with hyperglycemia (principal); I10 Essential (primary) hypertension; E66.01 Morbid (severe) obesity due to excess calories; Z68.33 Body mass index [BMI] 33.0-33.9, adult; E78.00 Pure hypercholesterolemia, unspecified; K21.9 Gastro-esophageal reflux disease without esophagitis; G47.33 Obstructive sleep apnea (adult) (pediatric); B07.0 Plantar wart; Z23 Encounter for immunization

== ENCOUNTER → 2025-05-07 15:48 | Outpatient (BNVA) | payer OTHER, SELFPAY | PROVIDERS: PCP Internal Medicine; Visit Provider Internal Medicine | DX: E11.65 Type 2 diabetes mellitus with hyperglycemia (principal); I10 Essential (primary) hypertension; E78.00 Pure hypercholesterolemia, unspecified; E66.01 Morbid (severe) obesity due to excess calories; K21.9 Gastro-esophageal reflux disease without esophagitis; G47.33 Obstructive sleep apnea (adult) (pediatric); B07.0 Plantar wart; M32.9 Systemic lupus erythematosus, unspecified; Z23 Encounter for immunization; Z99.89 Dependence on other enabling machines and devices | CPT/HCPCS: 83036; 90471; 90714; 96127 ==

== ENCOUNTER 2025-05-27 14:48 | Outpatient (AMB) | payer OTHER, SELFPAY ==
[2025-05-27 14:59] VITALS: BMI 43.0
--- NOTE | 2025-05-27 14:59 | MHC.OFFVIS ---
Vital Signs 05/27/25 14:59 Height 5 ft 2 in Weight 235 lb BMI 43.0 Intake Visit Reasons: New Pt - Left Plantar Wart - Failed OTC treatment Intake Note: Jossue is a 64 year old male who presents today as a New Patient with complaints of a plantar wart on the Left Foot. He has not tried over the counter treatments at this time. Hx of DM. The plantar warts has been there for a couple of months and he notes occasional soreness while ambulating. Allergies lisinopril (LISINOPRIL) Allergy (Severe, Verified 05/07/25 16:01) ANGIOEDEMA, COUGH mold Allergy (Severe, Verified 05/07/25 16:01) runnig nose / nasal simvastatin (SIMVASTATIN) Allergy (Intermediate, Verified 05/07/25 16:01) SWOLLEN JOINTS Medication List - Last Reconciled 05/28/25 by Celsa Echevarria DPM [AUTO PAP 6-16 cm H2O humidified AIR As directed] blood sugar diagnostic (FreeStyle Lite Strips) As directed to test BS 3 times per day blood-glucose meter (FreeStyle Lite Meter kit) As directed to test BS 3 times per day cholecalciferol (vitamin D3) 25 mcg PO DAILY clotrimazole 1% 1 appl topical BID 4 weeks cyanocobalamin (vitamin B-12) 1,000 mcg PO DAILY empagliflozin (Jardiance) 25 mg PO DAILY fexofenadine (Mulu Allergy) 180 mg PO DAILY ipratropium bromide 2 sprays intranasal BID irbesartan 75 mg PO DAILY lancets (FreeStyle Lancets) As directed to test BS 3 times per day metformin 500 mg PO BID metoprolol succinate ER 50 mg PO DAILY 90 days omeprazole 40 mg PO DAILY pravastatin 10 mg PO DAILY HPI Comments Details: The patient is a 64-year-old male with a past medical history as seen below presenting with a thickened lesion to the plantar aspect of the left foot. The patient reports that the lesion has been causing intermittent soreness, particularly after wearing work boots, which seems to exacerbate the discomfort. He has not noticed any drainage, purulence, or bleeding from the area, and the discomfort does not prevent him from walking or performing daily activities. The patient works in an environment with potential foot trauma, such as stepping on metal shavings, which may have contributed to the formation of the lesion. He wears sneakers regularly, except when working, where he uses waterproof work boots. The patient has not experienced any sharp pain or injury that he can recall, and there is no recent history of stepping on anything sharp. Patient states he thought it may have been a wart and applied compound W to the area with no resolve. He denies any other pedal concerns at this time. [facility] Medical History Neck fullness Tinea pedis Dysuria Right inguinal hernia Renal calculi Iron deficiency anemia Obstructive sleep apnea Obesity GERD (gastroesophageal reflux disease) Anxiety Insomnia Hypercholesterolemia Type 2 diabetes mellitus with hyperglycemia Vitamin D deficiency Allergic rhinitis Hypertension Surgical History Hx of cystoscopy History of tonsillectomy and adenoidectomy History of ear surgery History of inguinal hernia repair Family History Father Hypertension CVD (cardiovascular disease) Myocardial infarction Mother Hypertension CVD (cardiovascular disease) CAD (coronary artery disease) Sister Myocardial infarction Brother Alcohol abuse CVA (cerebral vascular accident) Social History Housing: House Alcohol intake: current Alcohol intake frequency: holidays/special occasions only Alcohol type: beer Comment: once Q4 months 2 drinks Patient Tobacco Use Status: Never used Tobacco Tobacco use type: Cigarette e-Cigarette/Vaping Use: Never Used Second Hand Smoke Exposure: No service: No Current occupational status: employed Cognitive needs: No Hearing needs: Yes Vision needs: No Review of Systems Const Details: - Musculoskeletal: Reports intermittent soreness in the plantar aspect of the left foot, particularly in the area of the thickened lesion. - Integumentary: Denies drainage, bleeding, or signs of infection from the thickened lesion. All systems reviewed & are unremarkable except as noted in HPI and below Physical Exam Vital Signs: BMI result Body Mass Index 43.0 Extrem Other: Left lower extremity focused physical exam: Derm: Thickened lesion with a core noted to the plantar lateral aspect of the foot in the area of the base of the 5th metatarsal. No open lesions, abrasions, or wounds noted. Xerosis noted diffusely. No drainage, purulence, or bleeding noted. No clinical signs of infection. Upon debridement no pinpoint bleeding noted. Vasc: DP/PT pulses palpable. CFT < 3 secs. Temp gradient warm to warm. No edema noted. No varicosities noted. Neuro: Protective sensations grossly intact. MSK: Pain on palpation to the area of the thickened lesion. No crepitus or fluctuance noted. ROM of the forefoot, hindfoot, and ankle WNL. Minimally antalgic gait unassisted. Office Procedures AMB Debridement/Avulsion Podia Details: Debrided the hyperkeratotic lesion noted to the left foot using a 15. Blade with no incidents. [id number] of Callus (1) Procedure code (CPT) selection complete Results Reviewed Results Reviewed: Laboratory Tests 05/07/25 16:03 Hgb A1c (Clinic) 7.4 H Assessment & Plan Assessment & Plan (1) Other specified epidermal thickening: Code(s): L85.8 - Other specified epidermal thickening Category: Medical (2) Intractable plantar keratosis: Code(s): L84 - Corns and callosities Category: Medical (3) Callus: Code(s): L84 - Corns and callosities Category: Medical (4) Pain in left foot: Code(s): M79.672 - Pain in left foot Category: Medical Plan Patient was informed and verbally consented to the use of an ambient scribe for clinic note documentation during this visit. I discussed with the patient that the condition is likely a callus/IPK as opposed to a plantar wart. I explained the procedure of shaving down the callus. We talked about the importance of applying a thick cream or Vaseline to the area to reduce the rate of recurrence and the use of callus cushions for added comfort. - Debrided down the callus to alleviate discomfort and prevent recurrence. - Advised the patient of the application of a thick cream or Vaseline to the affected area to reduce the rate of recurrence of the callus. - Recommend the use of callus cushions in shoes to reduce pressure on the area. - Patient is to avoid barefoot walking and is to wear supportive shoe gear. RTC prn for continued callus treatment. Orders: Orders AMB Debridement/Avulsion Podiatry 05/27/25 L84 - Corns and callosities, L85.8 - Other specified epidermal thickening, M79.672 - Pain in left foot Coding Level of Care Code New Pt Level 3 (41011) Diagnoses Other specified epidermal thickening L85.8 Intractable plantar keratosis L84 Callus L84 Pain in left foot M79.672 CPT Codes Skin Debridement - CPT: 78907-Gtcygdvnswp of Callus (1) ([id number]) Time Spent (min) 45
== END 2025-05-27 15:17 | disposition home or self-care (01) ==
LOC: HO.HPODS 14:49
PROVIDERS: PCP Internal Medicine; Visit Provider Student in an Organized Health Care Education/Training Program
DX: L85.8 Other specified epidermal thickening (principal); L84 Corns and callosities; M79.672 Pain in left foot
CPT/HCPCS: 11055; 99203

== ENCOUNTER → 2025-05-27 14:48 | Outpatient (BNVA) | payer OTHER, SELFPAY | PROVIDERS: PCP Internal Medicine; Visit Provider Student in an Organized Health Care Education/Training Program | DX: E11.9 Type 2 diabetes mellitus without complications (principal); L84 Corns and callosities; L85.8 Other specified epidermal thickening; M79.672 Pain in left foot | CPT/HCPCS: 11055 ==